=== PATIENT | female | born 1985 | race Hispanic/Latino ===

== ENCOUNTER → 2020-03-07 11:40 | Outpatient (CLI) | payer OTHER, MEDICAID, SELFPAY ==
--- NOTE | 2020-03-07 | DI.RAD.S_ITS ---
PROCEDURE: XR ANKLE RT MIN 3V INDICATIONS: Right ankle pain TECHNIQUE: 3 views of the ankle were acquired. COMPARISON: None. FINDINGS: Bones: No fractures or dislocations. Ankle mortise is normally aligned. No suspicious bony lesions. Prominent talar beak. Soft tissues: No tibiotalar joint effusion. Achilles tendon appears normal. 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 If indicated, MRI could be performed for further evaluation. Dictated by: [facility] Interpreted: Patricia Khan MD on 03/07/2020 at 13:37 Approved by: Patricia Khan MD, PhD on 03/07/2020 at 16:46
== END ==
PROVIDERS: PCP Family Medicine; Referring Provider Family Medicine; Visit Provider Family Medicine
DX: M25.571 Pain in right ankle and joints of right foot (principal)
CPT/HCPCS: 73610

== ENCOUNTER 2020-05-08 13:30 | Outpatient (RCR) | payer OTHER, MEDICAID, SELFPAY ==
--- NOTE | 2020-03-27 16:42 | PT.OIE ---
Current Diagnoses Difficulty in walking, not elsewhere classified (03/27/20) Sprain of unspecified ligament of right ankle, initial encounter (03/27/20) Past Medical History (Last Updated 10/17/19 @ 13:05 by Pat Reyes, RN) delivery delivered (Acute) Past Surgical History (Last Updated 10/17/19 @ 13:04 by Pat Reyes, RN) No pertinent past surgical history (Acute) Visit Care Team Role Provider Type Corrie Bynum MD Attending Provider Physician Family Provider Primary Care Provider Referring Provider Specialty: Family Practice Address: [address] [place] [address] [place], [place], [facility] Email: [email or web address] Physical Therapy Initial Evaluation PT-OP-A Visit Information Start: 03/27/20 13:01 Freq: Status: Active Protocol: Document 03/27/20 13:05 AW (Rec: 03/27/20 13:12 AW [id number]) Out-Patient Physical Therapy Visit Information Visit Information Visit Type Initial Evaluation Visit Start Time 13:30 Visit Stop Time 14:15 Total Visit Minutes 45 Visit Number 1 Evaluation Information Evaluation Date 03/27/20 PT-OP-B Current Condition Start: 03/27/20 13:01 Freq: Status: Active Protocol: Document 03/27/20 13:05 AW (Rec: 03/27/20 13:12 AW [id number]) Current Condition History of Current Condition Onset Date 02/26/20 Current Complaints right ankle pain History of Current Condition On February 25, Pebbles was playing kickball with her children. She was on an uneven surface as her dogs had been digging holes in the yard. She heard three cracks but felt little pain. She started to notice swelling that night and had bruising over the anterior and lateral aspects of her ankle over the next few days. She iced one time and tried compression but could not get a good fit with a brace. Her doctor ordered an x-ray which demonstrated no fracture and normal alignment. Her pain was 4/10 at worst but she arrives today with no pain. She reports limping and guarding over the course of several days. Pt experienced a similar injury at age 13 which she states was at least as bad. She runs 3 miles approximately every other day which she reports is very beneficial for her mental health. She reports no recent change in her mileage or terrain. She did buy new running shoes 3 months ago due to nagging diffuse bilateral ankle pain, but she does not believe the change in footwear contributed to her injury. She typically wears sandals during the summer. Following the advice of her primary care provider, pt has not been running since her injury. 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 If indicated, MRI could be performed for further evaluation. Report finds No fractures or dislocations. Ankle mortise is normally aligned. No suspicious bony lesions. Soft tissues: No tibiotalar joint effusion. Achilles tendon appears normal. Treatment Goals Patient/Caregiver Goals Pt would like to return to running and to be more comfortable on uneven terrain. Prior Functional Status Baseline Function- ADL's Independent Baseline Function- Mobility Independent Baseline Function- Recreation/Hobbies Pt runs 3 miles every other day. Current Functional Impairments (Reported) Functional Limitations- Mobility/Gait Decreased confidence on uneven terrain Functional Limitations- Recreation/ Unable to participate in Hobbies running Personal Factors Other Personal Factors That May Effect Previous similar injury at age Therapy/Recovery 13 PT-OP-C Subjective Start: 03/27/20 13:01 Freq: Status: Active Protocol: Document 03/27/20 13:05 AW (Rec: 03/27/20 15:13 AW [id number]) Patient Questionnaires Foot & Ankle Ability Measure- ADL and Sports FAAM-ADL Score 81 FAAM-ADL Impairment 1 to 19% Impaired (Score 67-83 ) FAAM-Sport Score 22 FAAM-Sport Impairment 20 to 39% Impaired (Score 19- 24) Lower Extremity Functional Scale LEFS Score 75 LEFS Impairment 1 to 19% Impaired (Score 63-79 ) OP-PT Pain Assessment Pain Assessment Grid Paper Pain Assessment Grid Completed Yes Comments Pain Comments Pt reports no pain today. Her worst pain was 4/10 with swelling and bruising of anterior and lateral ankle. PT-OP-D Balance Start: 03/27/20 13:01 Freq: Status: Active Protocol: Document 03/27/20 13:05 AW (Rec: 03/27/20 15:13 AW [id number]) OP-PT Balance Assessment Standing Balance Static Standing Balance Ability Normal Dynamic Standing Balance Ability Good Standing Balance Comments Single leg stance 25 seconds left side and 20 seconds right side with increased shaking/ instability. Romero Fall Scale Copyright Permission PT-OP-F Manual Assessment Start: 03/27/20 13:01 Freq: Status: Active Protocol: Document 03/27/20 13:05 AW (Rec: 03/27/20 15:13 AW [id number]) Manual Assessments Soft Tissue Assessment Soft Tissue Mobility Assessment Tenderness of lateral ankle Joint Mobility Assessment Joint Mobility Assessment Decreased posterior talar glide. Distal tib fib posterior and anterior glides normal. PT-OP-G Mobility & Gait Start: 03/27/20 13:01 Freq: Status: Active Protocol: Document 03/27/20 13:05 AW (Rec: 03/27/20 15:13 AW [id number]) OP Mobility Evaluation Functional Movements Squats Pt able to perform bilateral squat with good depth and heels flat. OP Gait Assessment Gait Gait Assistance Required: Independent Distance (Feet) 200 Assistive Devices Assistive Device None Gait Deviations General Gait Pattern Antalgic,Decreased Stride Length,Step-to Gait Comments Gait Comments Gait notable for decreased R LE stance time and decreased L LE step length. PT-OP-J Posture/Palpation/Skin Start: 03/27/20 13:01 Freq: Status: Active Protocol: Document 03/27/20 13:05 AW (Rec: 03/27/20 15:13 AW [id number]) Posture Evaluation Position Standing Weight Distribution Balanced Ankle/Foot Posture (L) Calcaneal Eversion,(R) Calcaneal Eversion Foot Arch (L) Low Arch,(R) Low Arch Toe Posture (L) Flexed Toes,(R) Flexed Toes Comments Posture Comments Slight calcaneal valgus in weightbearing with left more pronounced than right. Skin Assessment Edema Assessment Bilateral Ankle Comments Figure 8 measurements: L 49 cm ; R 51 cm PT-OP-K Range of Motion Start: 03/27/20 13:01 Freq: Status: Active Protocol: Document 03/27/20 13:05 AW (Rec: 03/27/20 15:13 AW [id number]) Knee Goniometric Range of Motion Knee ROM Limitations Comments B knee ROM WNL Ankle and Foot Goniometric Range of Motion Ankle and Foot ROM Limitations ROM Limitations Swelling Comments Left ankle DF with knee flexed 18 degrees Left ankle DF with knee extended 10 degrees Right ankle DF with knee flexed 16 degrees Right ankle DF with knee extended 10 degrees Eversion and eversion WNL bilaterally Toe Range of Motion Toes ROM Limitations Comments WNL bilaterally all digits PT-OP-L Special Tests Start: 03/27/20 13:01 Freq: Status: Active Protocol: Document 03/27/20 13:05 AW (Rec: 03/27/20 15:13 AW [id number]) Special Tests Foot/Ankle Special Tests Anterior Draw Test Results (+) R Comments boggy end feel right side compared with left PT-OP-M Strength Start: 03/27/20 13:01 Freq: Status: Active Protocol: Document 03/27/20 13:05 AW (Rec: 03/27/20 15:13 AW [id number]) Hip Strength Hip Manual Muscle Testing Right Comments B hip strength grossly 4+/5 Knee Strength Knee Manual Muscle Testing Right Comments B knee strength grossly 5/5 Ankle/Foot Strength Ankle and Foot Manual Muscle Testing Right Dorsiflexion (L4) 4+ Good+ Plantarflexion (S1) 4- Good- Inversion 4+ Good+ Eversion (S1) 4+ Good+ Comments PF tested in standing. Pt able to complete 20 reps single leg heel raise on left side but only 6 reps on right side. Left ankle grossly 5/5 Toe Strength Toe Manual Muscle Testing Right Great Toe Comments B digits 1-5 4+/5 to 5/5 PT-OP-Q Treatments Start: 03/27/20 13:01 Freq: Status: Active Protocol: Document 03/27/20 13:05 AW (Rec: 03/27/20 15:13 AW [id number]) Therapeutic Exercises Supine Exercises resisted DF/PF/inversion/eversion Supine Exercise Name resisted DF/PF/inversion/ eversion Side right Resistance level 1 Reps/Minutes 15 reps each plane Comments HEP AROM R ankle Supine Exercise Name AROM - alphabet Side right Reps/Minutes 2 min Comments no report of pain; pt cued for slow movement PT-OP-R Modalities Start: 03/27/20 13:01 Freq: Status: Active Protocol: Document 03/27/20 13:05 AW (Rec: 03/27/20 15:13 AW [id number]) Hot Pack/Cold Pack Treatment Ice Massage Location right lateral ankle Patient Position Sitting Treatment Duration (minutes) 6 Patient Tolerance Good Comments Contraindications cleared. Pt reports good numbing effect. Educated pt on self- administration PT-OP-T Assessment and Plan Start: 03/27/20 13:01 Freq: Status: Active Protocol: Document 03/27/20 13:05 AW (Rec: 03/27/20 16:36 AW [id number]) Physical Therapy Assessment Rehab Potential Rehabilitation Potential Excellent Evaluation Complexity Number of Personal Factors/Comorbidities 1-2 Number of Body Systems Impaired 1-2 Clinical Presentation at Evaluation Stable Impairments Impairments Balance,Edema,Gait,Pain, Posture,ROM,Strength Goals Six Impairment swelling right ankle Short Term Goal (STG) Figure 8 measurement of right ankle will be reduced to 49 cm . STG Duration 04/24/20 Five Impairment lack of confidence on uneven terrain Skilled Nursing Goal (LTG) Pt will walk 30 minutes on uneven terrain without increase in pain or swelling LTG Duration 05/22/20 Four Impairment pt scores 22/28 on FAAM sport subscale Skilled Nursing Goal (LTG) Pt will score 26/28 or greater on FAAM sport subscale to demonstrate improved involvement in pt's preferred activities. Three Impairment decreased right ankle strength Machinery Dismantler Goal (LTG) Pt will demonstrate right ankle strength same as left, including single leg heel raises. LTG Duration 05/22/20 Two Impairment Pt has no appropriate HEP Short Term Goal (STG) Pt will be independent with HEP for support of therapy services provided in clinic STG Duration 04/24/20 Machinery Dismantler Goal (LTG) Pt will be independent with maintenance H&P for improved right ankle stability LTG Duration 05/22/20 One Impairment Pt unable to run for exercise. Short Term Goal (STG) Pt will run 1/2 mile without increase in pain or swelling STG Duration 04/24/20 Machinery Dismantler Goal (LTG) Pt will run 2 miles without increase in pain or swelling LTG Duration 05/22/20 Assessment Summary Assessment Pebbles is a 34 year old woman seen for PT evaluation one month after right ankle sprain sustained while playing kickball on uneven terrain. She presents with swelling, decreased strength, and decreased stability of her right ankle which are affecting her ability to participate in recreational activities such as running and her confidence navigating uneven terrain. Pt will benefit from outpatient PT to address these impairments for successful return to sport and to decrease the risk of re- injury. Physical Therapy Plan Frequency and Duration Frequency of Treatment 1-2x/week Duration of Treatment 12 weeks Plan of Care Start Date 03/27/20 Plan of Care End Date 06/19/20 Therapeutic Interventions Therapeutic Interventions Balance Training,Gait Training ,Home Exercise Program,Joint Mobilizations,Manual Therapy, Neuromuscular Re-education, Patient/Caregiver Education, Soft Tissue Mobilization, Taping,Therapeutic Activities, Therapeutic Exercises Modalities Cold Pack/Ice Massage Other Therapeutic Interventions cryo cuff Next Visit Focus/Plan Next Note Type Treatment Note Next Visit Plan review HEP (ankle alphabet, resisted ankle DF/PF/inversion /eversion, self ice massage); ROM and strengthening right ankle; cryo cuff
--- NOTE | 2020-03-27 16:42 | PT.OPPOC ---
Physical, Occupational & Speech Therapy At [facility] Current Diagnoses Difficulty in walking, not elsewhere classified (03/27/20) Sprain of unspecified ligament of right ankle, initial encounter (03/27/20) Visit Care Team Role Provider Type Corrie Bynum MD Attending Provider Physician Family Provider Primary Care Provider Referring Provider Specialty: Family Practice Address: [address] [place] [address], [facility] [place], [facility] Email: Plan Of Care PT-OP-T Assessment and Plan Start: 03/27/20 13:01 Freq: Status: Active Protocol: Document 03/27/20 13:05 AW (Rec: 03/27/20 16:36 AW [id number]) Physical Therapy Assessment Rehab Potential Rehabilitation Potential Excellent Evaluation Complexity Number of Personal Factors/Comorbidities 1-2 Number of Body Systems Impaired 1-2 Clinical Presentation at Evaluation Stable Impairments Impairments Balance,Edema,Gait,Pain, Posture,ROM,Strength Goals Six Impairment swelling right ankle Short Term Goal (STG) Figure 8 measurement of right ankle will be reduced to 49 cm . STG Duration 04/24/20 Five Impairment lack of confidence on uneven terrain Mcc Goal (LTG) Pt will walk 30 minutes on uneven terrain without increase in pain or swelling LTG Duration 05/22/20 Four Impairment pt scores 22/28 on FAAM sport subscale Attending Anesthesiologist Goal (LTG) Pt will score 26/28 or greater on FAAM sport subscale to demonstrate improved involvement in pt's preferred activities. Three Impairment decreased right ankle strength Attending Anesthesiologist Goal (LTG) Pt will demonstrate right ankle strength same as left, including single leg heel raises. LTG Duration 05/22/20 Two Impairment Pt has no appropriate HEP Short Term Goal (STG) Pt will be independent with HEP for support of therapy services provided in clinic STG Duration 04/24/20 Attending Anesthesiologist Goal (LTG) Pt will be independent with maintenance H&P for improved right ankle stability LTG Duration 05/22/20 One Impairment Pt unable to run for exercise. Short Term Goal (STG) Pt will run 1/2 mile without increase in pain or swelling STG Duration 04/24/20 Attending Anesthesiologist Goal (LTG) Pt will run 2 miles without increase in pain or swelling LTG Duration 05/22/20 Assessment Summary Assessment Pebbles is a 34 year old woman seen for PT evaluation one month after right ankle sprain sustained while playing kickball on uneven terrain. She presents with swelling, decreased strength, and decreased stability of her right ankle which are affecting her ability to participate in recreational activities such as running and her confidence navigating uneven terrain. Pt will benefit from outpatient PT to address these impairments for successful return to sport and to decrease the risk of re- injury. Physical Therapy Plan Frequency and Duration Frequency of Treatment 1-2x/week Duration of Treatment 12 weeks Plan of Care Start Date 03/27/20 Plan of Care End Date 06/19/20 Therapeutic Interventions Therapeutic Interventions Balance Training,Gait Training ,Home Exercise Program,Joint Mobilizations,Manual Therapy, Neuromuscular Re-education, Patient/Caregiver Education, Soft Tissue Mobilization, Taping,Therapeutic Activities, Therapeutic Exercises Modalities Cold Pack/Ice Massage Other Therapeutic Interventions cryo cuff Next Visit Focus/Plan Next Note Type Treatment Note Next Visit Plan review HEP (ankle alphabet, resisted ankle DF/PF/inversion /eversion, self ice massage); ROM and strengthening right ankle; cryo cuff Plan of Care Dates Plan of Care Start Date 03/27/20 Plan of Care End Date 06/19/20 Electronically Signed by: Maggi De León, PT 03/27/20 [id number] Please Sign and Return: I have reviewed this Plan of Care and certify that the skilled therapy services above are required to meet the patient?s needs. Physician Signature Date Printed Name and Credentials Clinical Instructor Signature Printed Name and Credentials
--- NOTE | 2020-04-03 16:27 | PT.OTN ---
Current Diagnoses Difficulty in walking, not elsewhere classified (04/03/20) Sprain of unspecified ligament of right ankle, initial encounter (04/03/20) Physical Therapy Treatment Note PT-OP-A Visit Information Start: 03/27/20 13:01 Freq: Status: Active Protocol: Document 04/03/20 16:07 AW (Rec: 04/03/20 16:24 AW [email or web address]) Out-Patient Physical Therapy Visit Information Visit Information Visit Type Treatment Note Visit Start Time 15:15 Visit Stop Time 16:10 Total Visit Minutes 55 Visit Number 11/13 Evaluation Information Evaluation Date 03/27/20 PT-OP-B Current Condition Start: 03/27/20 13:01 Freq: Status: Active Protocol: Document 03/27/20 13:05 AW (Rec: 03/27/20 13:12 AW [id number]) Current Condition History of Current Condition Onset Date 02/26/20 Current Complaints right ankle pain History of Current Condition On February 25, Pebbles was playing kickball with her children. She was on an uneven surface as her dogs had been digging holes in the yard. She heard three cracks but felt little pain. She started to notice swelling that night and had bruising over the anterior and lateral aspects of her ankle over the next few days. She iced one time and tried compression but could not get a good fit with a brace. Her doctor ordered an x-ray which demonstrated no fracture and normal alignment. Her pain was 4/10 at worst but she arrives today with no pain. She reports limping and guarding over the course of several days. Pt experienced a similar injury at age 13 which she states was at least as bad. She runs 3 miles approximately every other day which she reports is very beneficial for her mental health. She reports no recent change in her mileage or terrain. She did buy new running shoes 3 months ago due to nagging diffuse bilateral ankle pain, but she does not believe the change in footwear contributed to her injury. She typically wears sandals during the summer. Following the advice of her primary care provider, pt has not been running since her injury. 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 If indicated, MRI could be performed for further evaluation. Report finds No fractures or dislocations. Ankle mortise is normally aligned. No suspicious bony lesions. Soft tissues: No tibiotalar joint effusion. Achilles tendon appears normal. Treatment Goals Patient/Caregiver Goals Pt would like to return to running and to be more comfortable on uneven terrain. Prior Functional Status Baseline Function- ADL's Independent Baseline Function- Mobility Independent Baseline Function- Recreation/Hobbies Pt runs 3 miles every other day. Current Functional Impairments (Reported) Functional Limitations- Mobility/Gait Decreased confidence on uneven terrain Functional Limitations- Recreation/ Unable to participate in Hobbies running Personal Factors Other Personal Factors That May Effect Previous similar injury at age Therapy/Recovery 13 PT-OP-C Subjective Start: 03/27/20 13:01 Freq: Status: Active Protocol: Document 04/03/20 16:07 AW (Rec: 04/03/20 16:24 AW [email or web address]) OP-PT Subjective Patient Comments Patient Comments Pt has been doing her HEP and also initiated a family walking program. She is walking a mile every night with her family on paved surfaces and varying inclines. She has also been icing which she finds effective. PT-OP-D Balance Start: 03/27/20 13:01 Freq: Status: Active Protocol: Document 03/27/20 13:05 AW (Rec: 03/27/20 15:13 AW [id number]) OP-PT Balance Assessment Standing Balance Static Standing Balance Ability Normal Dynamic Standing Balance Ability Good Standing Balance Comments Single leg stance 25 seconds left side and 20 seconds right side with increased shaking/ instability. Romero Fall Scale Copyright Permission PT-OP-F Manual Assessment Start: 03/27/20 13:01 Freq: Status: Active Protocol: Document 03/27/20 13:05 AW (Rec: 03/27/20 15:13 AW [id number]) Manual Assessments Soft Tissue Assessment Soft Tissue Mobility Assessment Tenderness of lateral ankle Joint Mobility Assessment Joint Mobility Assessment Decreased posterior talar glide. Distal tib fib posterior and anterior glides normal. PT-OP-G Mobility & Gait Start: 03/27/20 13:01 Freq: Status: Active Protocol: Document 03/27/20 13:05 AW (Rec: 03/27/20 15:13 AW [id number]) OP Mobility Evaluation Functional Movements Squats Pt able to perform bilateral squat with good depth and heels flat. OP Gait Assessment Gait Gait Assistance Required: Independent Distance (Feet) 200 Assistive Devices Assistive Device None Gait Deviations General Gait Pattern Antalgic,Decreased Stride Length,Step-to Gait Comments Gait Comments Gait notable for decreased R LE stance time and decreased L LE step length. PT-OP-J Posture/Palpation/Skin Start: 03/27/20 13:01 Freq: Status: Active Protocol: Document 03/27/20 13:05 AW (Rec: 03/27/20 15:13 AW [id number]) Posture Evaluation Position Standing Weight Distribution Balanced Ankle/Foot Posture (L) Calcaneal Eversion,(R) Calcaneal Eversion Foot Arch (L) Low Arch,(R) Low Arch Toe Posture (L) Flexed Toes,(R) Flexed Toes Comments Posture Comments Slight calcaneal valgus in weightbearing with left more pronounced than right. Skin Assessment Edema Assessment Bilateral Ankle Comments Figure 8 measurements: L 49 cm ; R 51 cm PT-OP-K Range of Motion Start: 03/27/20 13:01 Freq: Status: Active Protocol: Document 03/27/20 13:05 AW (Rec: 03/27/20 15:13 AW [id number]) Knee Goniometric Range of Motion Knee ROM Limitations Comments B knee ROM WNL Ankle and Foot Goniometric Range of Motion Ankle and Foot ROM Limitations ROM Limitations Swelling Comments Left ankle DF with knee flexed 18 degrees Left ankle DF with knee extended 10 degrees Right ankle DF with knee flexed 16 degrees Right ankle DF with knee extended 10 degrees Eversion and eversion WNL bilaterally Toe Range of Motion Toes ROM Limitations Comments WNL bilaterally all digits PT-OP-L Special Tests Start: 03/27/20 13:01 Freq: Status: Active Protocol: Document 03/27/20 13:05 AW (Rec: 03/27/20 15:13 AW [id number]) Special Tests Foot/Ankle Special Tests Anterior Draw Test Results (+) R Comments boggy end feel right side compared with left PT-OP-M Strength Start: 03/27/20 13:01 Freq: Status: Active Protocol: Document 03/27/20 13:05 AW (Rec: 03/27/20 15:13 AW [id number]) Hip Strength Hip Manual Muscle Testing Right Comments B hip strength grossly 4+/5 Knee Strength Knee Manual Muscle Testing Right Comments B knee strength grossly 5/5 Ankle/Foot Strength Ankle and Foot Manual Muscle Testing Right Dorsiflexion (L4) 4+ Good+ Plantarflexion (S1) 4- Good- Inversion 4+ Good+ Eversion (S1) 4+ Good+ Comments PF tested in standing. Pt able to complete 20 reps single leg heel raise on left side but only 6 reps on right side. Left ankle grossly 5/5 Toe Strength Toe Manual Muscle Testing Right Great Toe Comments B digits 1-5 4+/5 to 5/5 PT-OP-Q Treatments Start: 03/27/20 13:01 Freq: Status: Active Protocol: Document 04/03/20 16:07 AW (Rec: 04/03/20 16:24 AW [email or web address]) Cardio Equipment Bicycle (Upright) Duration (Minutes) 5 Resistance 5 Seat Position 2 Therapeutic Exercises Supine Exercises isometric eversion/eversion Supine Exercise Name isometric eversion/eversion Side right Equipment Used green ball Reps/Minutes 15 reps each direction resisted DF/PF/inversion/eversion Supine Exercise Name resisted DF/PF/inversion/ eversion Side right Resistance level 2 Equipment Used TB Reps/Minutes 15 reps each plane Comments HEP Sitting Exercises PNF D2 DF Sitting Exercise Name PNF D2 DF Side right Resistance manual Reps/Minutes 2 minutes Comments long-sitting PNF D1 DF Sitting Exercise Name PNF D1 DF Side right Resistance manual Reps/Minutes 2 minutes Comments long-sitting Standing Exercises heel raises Standing Exercise Name heel raises Side bilateral Equipment Used 6 step Reps/Minutes 15 reps x 2 weightbearing eversion Standing Exercise Name weightbearing eversion Side right Reps/Minutes 10 reps x 2 Comments cues to avoid hip rotation step up stretch Standing Exercise Name step up stretch Side right Equipment Used 6 stairs Reps/Minutes 1 minute Comments right foot on 2nd stair with posterior talar glide provided manually gastroc/soleus stretch Standing Exercise Name gastroc/soleus stretch Side bilateral Equipment Used SHARLENE Reps/Minutes 2 minutes Comments cues for hip extension PT-OP-R Modalities Start: 03/27/20 13:01 Freq: Status: Active Protocol: Document 04/03/20 16:07 AW (Rec: 04/03/20 16:25 AW [email or web address]) Hot Pack/Cold Pack Treatment cryo cuff Location right ankle Patient Position Hooklying Treatment Duration (minutes) 10 Patient Tolerance Good PT-OP-T Assessment and Plan Start: 03/27/20 13:01 Freq: Status: Active Protocol: Document 04/03/20 16:07 AW (Rec: 04/03/20 16:24 AW [email or web address]) Physical Therapy Assessment Goals Six Impairment swelling right ankle Short Term Goal (STG) Figure 8 measurement of right ankle will be reduced to 49 cm . STG Duration 04/24/20 Five Impairment lack of confidence on uneven terrain Half-Way Goal (LTG) Pt will walk 30 minutes on uneven terrain without increase in pain or swelling LTG Duration 05/22/20 Four Impairment pt scores 22/28 on FAAM sport subscale [place] Goal (LTG) Pt will score 26/28 or greater on FAAM sport subscale to demonstrate improved involvement in pt's preferred activities. Three Impairment decreased right ankle strength [place] Goal (LTG) Pt will demonstrate right ankle strength same as left, including single leg heel raises. LTG Duration 05/22/20 Two Impairment Pt has no appropriate HEP Short Term Goal (STG) Pt will be independent with HEP for support of therapy services provided in clinic STG Duration 04/24/20 Half-Way Goal (LTG) Pt will be independent with maintenance H&P for improved right ankle stability LTG Duration 05/22/20 One Impairment Pt unable to run for exercise. Short Term Goal (STG) Pt will run 1/2 mile without increase in pain or swelling STG Duration 04/24/20 [place] Goal (LTG) Pt will run 2 miles without increase in pain or swelling LTG Duration 05/22/20 Assessment Summary Assessment Pebbles tolerated increase in resistance this date. She expressed concerns about the talar beak noted on her x- rays. 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 Also educated pt on footwear for running, encouraging her to look for shoes that provide improved forefoot support. Physical Therapy Plan Frequency and Duration Frequency of Treatment 1-2x/week Duration of Treatment 12 weeks Plan of Care Start Date 03/27/20 Plan of Care End Date 06/19/20 Therapeutic Interventions Therapeutic Interventions Balance Training,Gait Training ,Home Exercise Program,Joint Mobilizations,Manual Therapy, Neuromuscular Re-education, Patient/Caregiver Education, Soft Tissue Mobilization, Taping,Therapeutic Activities, Therapeutic Exercises Modalities Cold Pack/Ice Massage Other Therapeutic Interventions cryo cuff Next Visit Focus/Plan Next Note Type Treatment Note Next Visit Plan review HEP (ankle alphabet, resisted ankle DF/PF/inversion /eversion, D1/D2 ankle DF, heel raises, self ice massage) ; ROM and strengthening right ankle; cryo cuff
--- NOTE | 2020-04-08 13:06 | PT.OTN ---
Current Diagnoses Difficulty in walking, not elsewhere classified (04/08/20) Sprain of unspecified ligament of right ankle, initial encounter (04/08/20) Physical Therapy Treatment Note PT-OP-A Visit Information Start: 03/27/20 13:01 Freq: Status: Active Protocol: Document 04/08/20 12:16 SP (Rec: 04/08/20 13:17 SP [id number]) Out-Patient Physical Therapy Visit Information Visit Information Visit Type Treatment Note Visit Start Time 12:16 Visit Stop Time 13:06 Total Visit Minutes 50 Visit Number 12/11 Number of [employer]UROPATH[employer] DOCTOR Visits 1 PT-OP-B Current Condition Start: 03/27/20 13:01 Freq: Status: Active Protocol: Document 03/27/20 13:05 AW (Rec: 03/27/20 13:12 AW [id number]) Current Condition History of Current Condition Onset Date 02/26/20 Current Complaints right ankle pain History of Current Condition On February 25, Pebbles was playing kickball with her children. She was on an uneven surface as her dogs had been digging holes in the yard. She heard three cracks but felt little pain. She started to notice swelling that night and had bruising over the anterior and lateral aspects of her ankle over the next few days. She iced one time and tried compression but could not get a good fit with a brace. Her doctor ordered an x-ray which demonstrated no fracture and normal alignment. Her pain was 4/10 at worst but she arrives today with no pain. She reports limping and guarding over the course of several days. Pt experienced a similar injury at age 13 which she states was at least as bad. She runs 3 miles approximately every other day which she reports is very beneficial for her mental health. She reports no recent change in her mileage or terrain. She did buy new running shoes 3 months ago due to nagging diffuse bilateral ankle pain, but she does not believe the change in footwear contributed to her injury. She typically wears sandals during the summer. Following the advice of her primary care provider, pt has not been running since her injury. 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 If indicated, MRI could be performed for further evaluation. Report finds No fractures or dislocations. Ankle mortise is normally aligned. No suspicious bony lesions. Soft tissues: No tibiotalar joint effusion. Achilles tendon appears normal. Treatment Goals Patient/Caregiver Goals Pt would like to return to running and to be more comfortable on uneven terrain. Prior Functional Status Baseline Function- ADL's Independent Baseline Function- Mobility Independent Baseline Function- Recreation/Hobbies Pt runs 3 miles every other day. Current Functional Impairments (Reported) Functional Limitations- Mobility/Gait Decreased confidence on uneven terrain Functional Limitations- Recreation/ Unable to participate in Hobbies running Personal Factors Other Personal Factors That May Effect Previous similar injury at age Therapy/Recovery 13 PT-OP-C Subjective Start: 03/27/20 13:01 Freq: Status: Active Protocol: Document 04/08/20 12:16 SP (Rec: 04/08/20 13:17 SP [id number]) OP-PT Subjective Patient Comments Patient Comments Pt had good reponse to last tx with no increase pain, concerns but reported didn't do as many of her exercises since last visit as had prior due to camping over the weekend. Is able to walk even surfaces with inclines more now still about a mile stint. PT-OP-D Balance Start: 03/27/20 13:01 Freq: Status: Active Protocol: Document 03/27/20 13:05 AW (Rec: 03/27/20 15:13 AW [id number]) OP-PT Balance Assessment Standing Balance Static Standing Balance Ability Normal Dynamic Standing Balance Ability Good Standing Balance Comments Single leg stance 25 seconds left side and 20 seconds right side with increased shaking/ instability. Romero Fall Scale Copyright Permission PT-OP-F Manual Assessment Start: 03/27/20 13:01 Freq: Status: Active Protocol: Document 03/27/20 13:05 AW (Rec: 03/27/20 15:13 AW [id number]) Manual Assessments Soft Tissue Assessment Soft Tissue Mobility Assessment Tenderness of lateral ankle Joint Mobility Assessment Joint Mobility Assessment Decreased posterior talar glide. Distal tib fib posterior and anterior glides normal. PT-OP-G Mobility & Gait Start: 03/27/20 13:01 Freq: Status: Active Protocol: Document 03/27/20 13:05 AW (Rec: 03/27/20 15:13 AW [id number]) OP Mobility Evaluation Functional Movements Squats Pt able to perform bilateral squat with good depth and heels flat. OP Gait Assessment Gait Gait Assistance Required: Independent Distance (Feet) 200 Assistive Devices Assistive Device None Gait Deviations General Gait Pattern Antalgic,Decreased Stride Length,Step-to Gait Comments Gait Comments Gait notable for decreased R LE stance time and decreased L LE step length. PT-OP-J Posture/Palpation/Skin Start: 03/27/20 13:01 Freq: Status: Active Protocol: Document 03/27/20 13:05 AW (Rec: 03/27/20 15:13 AW [id number]) Posture Evaluation Position Standing Weight Distribution Balanced Ankle/Foot Posture (L) Calcaneal Eversion,(R) Calcaneal Eversion Foot Arch (L) Low Arch,(R) Low Arch Toe Posture (L) Flexed Toes,(R) Flexed Toes Comments Posture Comments Slight calcaneal valgus in weightbearing with left more pronounced than right. Skin Assessment Edema Assessment Bilateral Ankle Comments Figure 8 measurements: L 49 cm ; R 51 cm PT-OP-K Range of Motion Start: 03/27/20 13:01 Freq: Status: Active Protocol: Document 03/27/20 13:05 AW (Rec: 03/27/20 15:13 AW [id number]) Knee Goniometric Range of Motion Knee ROM Limitations Comments B knee ROM WNL Ankle and Foot Goniometric Range of Motion Ankle and Foot ROM Limitations ROM Limitations Swelling Comments Left ankle DF with knee flexed 18 degrees Left ankle DF with knee extended 10 degrees Right ankle DF with knee flexed 16 degrees Right ankle DF with knee extended 10 degrees Eversion and eversion WNL bilaterally Toe Range of Motion Toes ROM Limitations Comments WNL bilaterally all digits PT-OP-L Special Tests Start: 03/27/20 13:01 Freq: Status: Active Protocol: Document 03/27/20 13:05 AW (Rec: 03/27/20 15:13 AW [id number]) Special Tests Foot/Ankle Special Tests Anterior Draw Test Results (+) R Comments boggy end feel right side compared with left PT-OP-M Strength Start: 03/27/20 13:01 Freq: Status: Active Protocol: Document 03/27/20 13:05 AW (Rec: 03/27/20 15:13 AW [id number]) Hip Strength Hip Manual Muscle Testing Right Comments B hip strength grossly 4+/5 Knee Strength Knee Manual Muscle Testing Right Comments B knee strength grossly 5/5 Ankle/Foot Strength Ankle and Foot Manual Muscle Testing Right Dorsiflexion (L4) 4+ Good+ Plantarflexion (S1) 4- Good- Inversion 4+ Good+ Eversion (S1) 4+ Good+ Comments PF tested in standing. Pt able to complete 20 reps single leg heel raise on left side but only 6 reps on right side. Left ankle grossly 5/5 Toe Strength Toe Manual Muscle Testing Right Great Toe Comments B digits 1-5 4+/5 to 5/5 PT-OP-Q Treatments Start: 03/27/20 13:01 Freq: Status: Active Protocol: Document 04/08/20 12:16 SP (Rec: 04/08/20 13:17 SP [id number]) Cardio Equipment Bicycle (Upright) Duration (Minutes) 8 Resistance 6 Seat Position 4 Therapeutic Exercises Supine Exercises resisted DF/PF/inversion/eversion Supine Exercise Name resisted DF/PF/inversion/ eversion Side right Resistance level 2 Equipment Used TB Reps/Minutes 2 min each plank Comments HEP, SEATED today Sitting Exercises PNF D2 DF Sitting Exercise Name PNF D2 DF Side right Resistance manual Reps/Minutes 2 minutes Comments long-sitting PNF D1 DF Sitting Exercise Name PNF D1 DF Side right Resistance manual Reps/Minutes 2 minutes Comments long-sitting Standing Exercises single heel raise Side right Equipment Used floor Reps/Minutes x8 Comments cued med/lat stability, slow descent squat taps Standing Exercise Name arms across chest Equipment Used 18 table height Reps/Minutes x10 Comments cued knee with mid foot alignment, hip hinge, slow eccentric control heel/toe walking Reps/Minutes 10 ft x2 each length heel raises Standing Exercise Name heel raises Side bilateral Equipment Used 6 step, floor, blue cushion Reps/Minutes 10 reps each surface weightbearing eversion Standing Exercise Name weightbearing eversion Side right Reps/Minutes 10 reps x 2 Comments cues to avoid hip rotation step up stretch Standing Exercise Name Ankle mobility (step up DF stretch) Side right Equipment Used 6 stairs Reps/Minutes 1 minute Comments right foot on 2nd stair with posterior talar glide provided manually gastroc/soleus stretch Standing Exercise Name gastroc/soleus stretch Side bilateral Equipment Used SHARLENE, and step Reps/Minutes 2 minutes Comments cues for hip extension PT-OP-R Modalities Start: 03/27/20 13:01 Freq: Status: Active Protocol: Document 04/03/20 16:07 AW (Rec: 04/03/20 16:25 AW [email or web address]) Hot Pack/Cold Pack Treatment cryo cuff Location right ankle Patient Position Hooklying Treatment Duration (minutes) 10 Patient Tolerance Good PT-OP-T Assessment and Plan Start: 03/27/20 13:01 Freq: Status: Active Protocol: Document 04/08/20 12:16 SP (Rec: 04/08/20 13:17 SP [id number]) Physical Therapy Assessment Goals Six Impairment swelling right ankle Short Term Goal (STG) Figure 8 measurement of right ankle will be reduced to 49 cm . STG Duration 04/24/20 Five Impairment lack of confidence on uneven terrain [place] Goal (LTG) Pt will walk 30 minutes on uneven terrain without increase in pain or swelling LTG Duration 05/22/20 Four Impairment pt scores 22/28 on FAAM sport subscale [employer] Goal (LTG) Pt will score 26/28 or greater on FAAM sport subscale to demonstrate improved involvement in pt's preferred activities. Three Impairment decreased right ankle strength [employer] Goal (LTG) Pt will demonstrate right ankle strength same as left, including single leg heel raises. LTG Duration 05/22/20 Two Impairment Pt has no appropriate HEP Short Term Goal (STG) Pt will be independent with HEP for support of therapy services provided in clinic STG Duration 04/24/20 [employer] Goal (LTG) Pt will be independent with maintenance H&P for improved right ankle stability LTG Duration 05/22/20 One Impairment Pt unable to run for exercise. Short Term Goal (STG) Pt will run 1/2 mile without increase in pain or swelling STG Duration 04/24/20 [place] Goal (LTG) Pt will run 2 miles without increase in pain or swelling LTG Duration 05/22/20 Assessment Summary Assessment Pebbles good recall, cued for set up IV/EV. Instruduced standing stabilization exercise: SLS, toe/heel walk, squat tap with cuing for proper knee & ankle alignment. Good feedback challenging but no pain during tx. Encourage to continue perform HEP at home between tx to progress strengthening toward goal uneven activities outside with verbal confirmation. Physical Therapy Plan Frequency and Duration Frequency of Treatment 1-2x/week Duration of Treatment 12 weeks Plan of Care Start Date 03/27/20 Plan of Care End Date 06/19/20 Therapeutic Interventions Therapeutic Interventions Balance Training,Gait Training ,Home Exercise Program,Joint Mobilizations,Manual Therapy, Neuromuscular Re-education, Patient/Caregiver Education, Soft Tissue Mobilization, Taping,Therapeutic Activities, Therapeutic Exercises Modalities Cold Pack/Ice Massage Other Therapeutic Interventions cryo cuff Next Visit Focus/Plan Next Note Type Treatment Note Next Visit Plan review HEP (squat taps, SLS uneven foam cushion, resisted ankle DF/PF/inversion/eversion , D1/D2 ankle DF, heel raises, toe/ heel walking, self ice massage); ROM and strengthening right ankle; cryo cuff as needed.
--- NOTE | 2020-04-11 13:47 | PT.OTN ---
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 Visit Start Time 13:05 Visit Stop Time 13:47 Total Visit Minutes 42 Visit Number 01/11 Number of DIRECTOR EMERGENCY Visits 2 PT-OP-B Current Condition Start: 03/27/20 13:01 Freq: Status: Active Protocol: Document 03/27/20 13:05 AW (Rec: 03/27/20 13:12 AW [id number]) Current Condition History of Current Condition Onset Date 02/26/20 Current Complaints right ankle pain History of Current Condition On February 25, Pebbles was playing kickball with her children. She was on an uneven surface as her dogs had been digging holes in the yard. She heard three cracks but felt little pain. She started to notice swelling that night and had bruising over the anterior and lateral aspects of her ankle over the next few days. She iced one time and tried compression but could not get a good fit with a brace. Her doctor ordered an x-ray which demonstrated no fracture and normal alignment. Her pain was 4/10 at worst but she arrives today with no pain. She reports limping and guarding over the course of several days. Pt experienced a similar injury at age 13 which she states was at least as bad. She runs 3 miles approximately every other day which she reports is very beneficial for her mental health. She reports no recent change in her mileage or terrain. She did buy new running shoes 3 months ago due to nagging diffuse bilateral ankle pain, but she does not believe the change in footwear contributed to her injury. She typically wears sandals during the summer. Following the advice of her primary care provider, pt has not been running since her injury. 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 If indicated, MRI could be performed for further evaluation. Report finds No fractures or dislocations. Ankle mortise is normally aligned. No suspicious bony lesions. Soft tissues: No tibiotalar joint effusion. Achilles tendon appears normal. Treatment Goals Patient/Caregiver Goals Pt would like to return to running and to be more comfortable on uneven terrain. Prior Functional Status Baseline Function- ADL's Independent Baseline Function- Mobility Independent Baseline Function- Recreation/Hobbies Pt runs 3 miles every other day. Current Functional Impairments (Reported) Functional Limitations- Mobility/Gait Decreased confidence on uneven terrain Functional Limitations- Recreation/ Unable to participate in Hobbies running Personal Factors Other Personal Factors That May Effect Previous similar injury at age Therapy/Recovery 13 PT-OP-C Subjective Start: 03/27/20 13:01 Freq: Status: Active Protocol: Document 04/11/20 15:42 TP (Rec: 04/11/20 16:17 TP [email or web address]) OP-PT Subjective Patient Comments Patient Comments Pt feels she is improving with good response to last tx. Ran downhill yesterday for an approximate distance of 0. 5miles on even terrain. Compliant with HEP. Requests review of 4-way ankle strenghtening with band. PT-OP-D Balance Start: 03/27/20 13:01 Freq: Status: Active Protocol: Document 03/27/20 13:05 AW (Rec: 03/27/20 15:13 AW [id number]) OP-PT Balance Assessment Standing Balance Static Standing Balance Ability Normal Dynamic Standing Balance Ability Good Standing Balance Comments Single leg stance 25 seconds left side and 20 seconds right side with increased shaking/ instability. Romero Fall Scale Copyright Permission PT-OP-F Manual Assessment Start: 03/27/20 13:01 Freq: Status: Active Protocol: Document 03/27/20 13:05 AW (Rec: 03/27/20 15:13 AW [id number]) Manual Assessments Soft Tissue Assessment Soft Tissue Mobility Assessment Tenderness of lateral ankle Joint Mobility Assessment Joint Mobility Assessment Decreased posterior talar glide. Distal tib fib posterior and anterior glides normal. PT-OP-G Mobility & Gait Start: 03/27/20 13:01 Freq: Status: Active Protocol: Document 03/27/20 13:05 AW (Rec: 03/27/20 15:13 AW [id number]) OP Mobility Evaluation Functional Movements Squats Pt able to perform bilateral squat with good depth and heels flat. OP Gait Assessment Gait Gait Assistance Required: Independent Distance (Feet) 200 Assistive Devices Assistive Device None Gait Deviations General Gait Pattern Antalgic,Decreased Stride Length,Step-to Gait Comments Gait Comments Gait notable for decreased R LE stance time and decreased L LE step length. PT-OP-J Posture/Palpation/Skin Start: 03/27/20 13:01 Freq: Status: Active Protocol: Document 03/27/20 13:05 AW (Rec: 03/27/20 15:13 AW [id number]) Posture Evaluation Position Standing Weight Distribution Balanced Ankle/Foot Posture (L) Calcaneal Eversion,(R) Calcaneal Eversion Foot Arch (L) Low Arch,(R) Low Arch Toe Posture (L) Flexed Toes,(R) Flexed Toes Comments Posture Comments Slight calcaneal valgus in weightbearing with left more pronounced than right. Skin Assessment Edema Assessment Bilateral Ankle Comments Figure 8 measurements: L 49 cm ; R 51 cm PT-OP-K Range of Motion Start: 03/27/20 13:01 Freq: Status: Active Protocol: Document 03/27/20 13:05 AW (Rec: 03/27/20 15:13 AW [id number]) Knee Goniometric Range of Motion Knee ROM Limitations Comments B knee ROM WNL Ankle and Foot Goniometric Range of Motion Ankle and Foot ROM Limitations ROM Limitations Swelling Comments Left ankle DF with knee flexed 18 degrees Left ankle DF with knee extended 10 degrees Right ankle DF with knee flexed 16 degrees Right ankle DF with knee extended 10 degrees Eversion and eversion WNL bilaterally Toe Range of Motion Toes ROM Limitations Comments WNL bilaterally all digits PT-OP-L Special Tests Start: 03/27/20 13:01 Freq: Status: Active Protocol: Document 03/27/20 13:05 AW (Rec: 03/27/20 15:13 AW [id number]) Special Tests Foot/Ankle Special Tests Anterior Draw Test Results (+) R Comments boggy end feel right side compared with left PT-OP-M Strength Start: 03/27/20 13:01 Freq: Status: Active Protocol: Document 03/27/20 13:05 AW (Rec: 03/27/20 15:13 AW [id number]) Hip Strength Hip Manual Muscle Testing Right Comments B hip strength grossly 4+/5 Knee Strength Knee Manual Muscle Testing Right Comments B knee strength grossly 5/5 Ankle/Foot Strength Ankle and Foot Manual Muscle Testing Right Dorsiflexion (L4) 4+ Good+ Plantarflexion (S1) 4- Good- Inversion 4+ Good+ Eversion (S1) 4+ Good+ Comments PF tested in standing. Pt able to complete 20 reps single leg heel raise on left side but only 6 reps on right side. Left ankle grossly 5/5 Toe Strength Toe Manual Muscle Testing Right Great Toe Comments B digits 1-5 4+/5 to 5/5 PT-OP-Q Treatments Start: 03/27/20 13:01 Freq: Status: Active Protocol: Document 04/11/20 15:42 TP (Rec: 04/11/20 16:17 TP [email or web address]) Cardio Equipment Bicycle (Upright) Duration (Minutes) 9 Resistance 6 Seat Position 4 Therapeutic Exercises Supine Exercises resisted DF/PF/inversion/eversion Supine Exercise Name resisted DF/PF/inversion/ eversion Side right Resistance level 2 Equipment Used TB Reps/Minutes 15 reps each plane Comments Reviewed for HEP, SEATED Sitting Exercises Eccentric PF Sitting Exercise Name Eccentric PF Side right Resistance level 2 Equipment Used TB Reps/Minutes 10 Comments Sitting 90/90, TB stretched from forefoot to above knee. Standing Exercises heel/toe walking Reps/Minutes 10 ft x2 each length heel raises Standing Exercise Name heel raises Side bilateral Equipment Used 6 step, floor Reps/Minutes 10 reps B, 5 reps R step up stretch Standing Exercise Name Ankle mobility (step up DF stretch) Side right Equipment Used 6 stairs Reps/Minutes 1 minute gastroc/soleus stretch Standing Exercise Name gastroc/soleus stretch Side bilateral Equipment Used step Reps/Minutes 2 minutes Neuro Re-Education Treatment Balance Activities Foam pad in // bars Details WBOS, NBOS, B tandem, SLS Surface unstable Equipment blue foam pad Reps/Duration 30 sec each Comments WBOS, NBOS, B tandem stance with head turns and EC. SLS EO /EC with cuing for glute facilitation. PT-OP-R Modalities Start: 03/27/20 13:01 Freq: Status: Active Protocol: Document 04/03/20 16:07 AW (Rec: 04/03/20 16:25 AW [email or web address]) Hot Pack/Cold Pack Treatment cryo cuff Location right ankle Patient Position Hooklying Treatment Duration (minutes) 10 Patient Tolerance Good PT-OP-T Assessment and Plan Start: 03/27/20 13:01 Freq: Status: Active Protocol: Document 04/11/20 15:42 TP (Rec: 04/11/20 16:17 TP [email or web address]) Physical Therapy Assessment Goals Six Impairment swelling right ankle Short Term Goal (STG) Figure 8 measurement of right ankle will be reduced to 49 cm . STG Duration 04/24/20 Five Impairment lack of confidence on uneven terrain Coin Purse Assembler Goal (LTG) Pt will walk 30 minutes on uneven terrain without increase in pain or swelling LTG Duration 05/22/20 Four Impairment pt scores 22/28 on FAAM sport subscale Assisted Goal (LTG) Pt will score 26/28 or greater on FAAM sport subscale to demonstrate improved involvement in pt's preferred activities. Three Impairment decreased right ankle strength Assisted Goal (LTG) Pt will demonstrate right ankle strength same as left, including single leg heel raises. LTG Duration 05/22/20 Two Impairment Pt has no appropriate HEP Short Term Goal (STG) Pt will be independent with HEP for support of therapy services provided in clinic STG Duration 04/24/20 Coin Purse Assembler Goal (LTG) Pt will be independent with maintenance H&P for improved right ankle stability LTG Duration 05/22/20 One Impairment Pt unable to run for exercise. Short Term Goal (STG) Pt will run 1/2 mile without increase in pain or swelling STG Duration 04/24/20 Assisted Goal (LTG) Pt will run 2 miles without increase in pain or swelling LTG Duration 05/22/20 Assessment Summary Assessment Pt strength improving as evidenced by improved performance of heel/toe walking and pt's reported ability to run 0.5miles. Pt also able to perform double heel raises on stairs, strengthening through full ROM . Became fatigued after 10 reps bilaterally + 5 reps on the R, saying her ankle felt jello-y. Pt needs to continue to improve strength to increase endurance and increased activity, including recreational activity of running. Education provided to focus on eccentric control during home exercises using a theraband and increasing running by 10% if pain free. Pt balance good on uneven surface (blue foam pad) in WBOS, NBOS, B tandem stance and SLS. Pt responds well to cues for activate glutes during SLS to keep pelvis level. Physical Therapy Plan Frequency and Duration Frequency of Treatment 1-2x/week Duration of Treatment 12 weeks Plan of Care Start Date 03/27/20 Plan of Care End Date 06/19/20 Therapeutic Interventions Therapeutic Interventions Balance Training,Gait Training ,Home Exercise Program,Joint Mobilizations,Manual Therapy, Neuromuscular Re-education, Patient/Caregiver Education, Soft Tissue Mobilization, Taping,Therapeutic Activities, Therapeutic Exercises Modalities Cold Pack/Ice Massage Other Therapeutic Interventions cryo cuff Next Visit Focus/Plan Next Note Type Treatment Note Next Visit Plan Warm-up with treadmill on incline, review HEP (squat taps, SLS uneven foam cushion, resisted ankle DF/PF/inversion/eversion , D1/D2 ankle DF, heel raises, toe/ heel walking, self ice massage, eccentric PF); ROM and strengthening right ankle; cryo cuff as needed. Increase functional movement.
--- NOTE | 2020-04-15 13:50 | PT.OTN ---
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 Visit Start Time 13:11 Visit Stop Time 13:50 Total Visit Minutes 39 Visit Number 02/10 Number of COMMERCIAL CORRESPONDENT Visits 3 PT-OP-B Current Condition Start: 03/27/20 13:01 Freq: Status: Active Protocol: Document 03/27/20 13:05 AW (Rec: 03/27/20 13:12 AW [id number]) Current Condition History of Current Condition Onset Date 02/26/20 Current Complaints right ankle pain History of Current Condition On February 25, Pebbles was playing kickball with her children. She was on an uneven surface as her dogs had been digging holes in the yard. She heard three cracks but felt little pain. She started to notice swelling that night and had bruising over the anterior and lateral aspects of her ankle over the next few days. She iced one time and tried compression but could not get a good fit with a brace. Her doctor ordered an x-ray which demonstrated no fracture and normal alignment. Her pain was 4/10 at worst but she arrives today with no pain. She reports limping and guarding over the course of several days. Pt experienced a similar injury at age 13 which she states was at least as bad. She runs 3 miles approximately every other day which she reports is very beneficial for her mental health. She reports no recent change in her mileage or terrain. She did buy new running shoes 3 months ago due to nagging diffuse bilateral ankle pain, but she does not believe the change in footwear contributed to her injury. She typically wears sandals during the summer. Following the advice of her primary care provider, pt has not been running since her injury. 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 If indicated, MRI could be performed for further evaluation. Report finds No fractures or dislocations. Ankle mortise is normally aligned. No suspicious bony lesions. Soft tissues: No tibiotalar joint effusion. Achilles tendon appears normal. Treatment Goals Patient/Caregiver Goals Pt would like to return to running and to be more comfortable on uneven terrain. Prior Functional Status Baseline Function- ADL's Independent Baseline Function- Mobility Independent Baseline Function- Recreation/Hobbies Pt runs 3 miles every other day. Current Functional Impairments (Reported) Functional Limitations- Mobility/Gait Decreased confidence on uneven terrain Functional Limitations- Recreation/ Unable to participate in Hobbies running Personal Factors Other Personal Factors That May Effect Previous similar injury at age Therapy/Recovery 13 PT-OP-C Subjective Start: 03/27/20 13:01 Freq: Status: Active Protocol: Document 04/15/20 13:11 TP (Rec: 04/15/20 14:01 TP [id number]) OP-PT Subjective Patient Comments Patient Comments Pt denies pain and reports there is no decline since previous tx. She has not been running again, but has done considerable housework and childcare with no symptoms. Would like to know what type of brace, if any, to purchase/ wear. PT-OP-D Balance Start: 03/27/20 13:01 Freq: Status: Active Protocol: Document 03/27/20 13:05 AW (Rec: 03/27/20 15:13 AW [id number]) OP-PT Balance Assessment Standing Balance Static Standing Balance Ability Normal Dynamic Standing Balance Ability Good Standing Balance Comments Single leg stance 25 seconds left side and 20 seconds right side with increased shaking/ instability. Romero Fall Scale Copyright Permission PT-OP-F Manual Assessment Start: 03/27/20 13:01 Freq: Status: Active Protocol: Document 03/27/20 13:05 AW (Rec: 03/27/20 15:13 AW [id number]) Manual Assessments Soft Tissue Assessment Soft Tissue Mobility Assessment Tenderness of lateral ankle Joint Mobility Assessment Joint Mobility Assessment Decreased posterior talar glide. Distal tib fib posterior and anterior glides normal. PT-OP-G Mobility & Gait Start: 03/27/20 13:01 Freq: Status: Active Protocol: Document 03/27/20 13:05 AW (Rec: 03/27/20 15:13 AW [id number]) OP Mobility Evaluation Functional Movements Squats Pt able to perform bilateral squat with good depth and heels flat. OP Gait Assessment Gait Gait Assistance Required: Independent Distance (Feet) 200 Assistive Devices Assistive Device None Gait Deviations General Gait Pattern Antalgic,Decreased Stride Length,Step-to Gait Comments Gait Comments Gait notable for decreased R LE stance time and decreased L LE step length. PT-OP-J Posture/Palpation/Skin Start: 03/27/20 13:01 Freq: Status: Active Protocol: Document 03/27/20 13:05 AW (Rec: 03/27/20 15:13 AW [id number]) Posture Evaluation Position Standing Weight Distribution Balanced Ankle/Foot Posture (L) Calcaneal Eversion,(R) Calcaneal Eversion Foot Arch (L) Low Arch,(R) Low Arch Toe Posture (L) Flexed Toes,(R) Flexed Toes Comments Posture Comments Slight calcaneal valgus in weightbearing with left more pronounced than right. Skin Assessment Edema Assessment Bilateral Ankle Comments Figure 8 measurements: L 49 cm ; R 51 cm PT-OP-K Range of Motion Start: 03/27/20 13:01 Freq: Status: Active Protocol: Document 03/27/20 13:05 AW (Rec: 03/27/20 15:13 AW [id number]) Knee Goniometric Range of Motion Knee ROM Limitations Comments B knee ROM WNL Ankle and Foot Goniometric Range of Motion Ankle and Foot ROM Limitations ROM Limitations Swelling Comments Left ankle DF with knee flexed 18 degrees Left ankle DF with knee extended 10 degrees Right ankle DF with knee flexed 16 degrees Right ankle DF with knee extended 10 degrees Eversion and eversion WNL bilaterally Toe Range of Motion Toes ROM Limitations Comments WNL bilaterally all digits PT-OP-L Special Tests Start: 03/27/20 13:01 Freq: Status: Active Protocol: Document 03/27/20 13:05 AW (Rec: 03/27/20 15:13 AW [id number]) Special Tests Foot/Ankle Special Tests Anterior Draw Test Results (+) R Comments boggy end feel right side compared with left PT-OP-M Strength Start: 03/27/20 13:01 Freq: Status: Active Protocol: Document 03/27/20 13:05 AW (Rec: 03/27/20 15:13 AW [id number]) Hip Strength Hip Manual Muscle Testing Right Comments B hip strength grossly 4+/5 Knee Strength Knee Manual Muscle Testing Right Comments B knee strength grossly 5/5 Ankle/Foot Strength Ankle and Foot Manual Muscle Testing Right Dorsiflexion (L4) 4+ Good+ Plantarflexion (S1) 4- Good- Inversion 4+ Good+ Eversion (S1) 4+ Good+ Comments PF tested in standing. Pt able to complete 20 reps single leg heel raise on left side but only 6 reps on right side. Left ankle grossly 5/5 Toe Strength Toe Manual Muscle Testing Right Great Toe Comments B digits 1-5 4+/5 to 5/5 PT-OP-Q Treatments Start: 03/27/20 13:01 Freq: Status: Active Protocol: Document 04/15/20 13:11 TP (Rec: 04/15/20 14:01 TP [id number]) Cardio Equipment Treadmill Duration (Minutes) 8 Speed 2.5 Incline 0 4min, 2.0 4min Therapeutic Exercises Supine Exercises resisted DF/PF/inversion/eversion Supine Exercise Name resisted DF/PF/inversion/ eversion Side right Resistance level 2 Equipment Used TB Reps/Minutes 10reps x 2sets each plane Comments Reviewed for HEP, SEATED Standing Exercises single leg deadlift Side right Equipment Used step used upright Reps/Minutes 10 Comments Cues to hinge at hip and knee alignment walking lunges Standing Exercise Name walking lunges Reps/Minutes 10 Comments Cues to move slowly, stopped due to discomfort in back single leg squat Standing Exercise Name single leg squat on bosu/on stair Side right Equipment Used bosu ball / stair Reps/Minutes 10reps x 2sets Comments Toe tap in back for balance, hands for suport, on stairs - heel off edge PT-OP-R Modalities Start: 03/27/20 13:01 Freq: Status: Active Protocol: Document 04/03/20 16:07 AW (Rec: 04/03/20 16:25 AW [id number]) Hot Pack/Cold Pack Treatment cryo cuff Location right ankle Patient Position Hooklying Treatment Duration (minutes) 10 Patient Tolerance Good PT-OP-T Assessment and Plan Start: 03/27/20 13:01 Freq: Status: Active Protocol: Document 04/15/20 13:11 TP (Rec: 04/15/20 14:01 TP [id number]) Physical Therapy Assessment Goals Six Impairment swelling right ankle Short Term Goal (STG) Figure 8 measurement of right ankle will be reduced to 49 cm . STG Duration 04/24/20 Five Impairment lack of confidence on uneven terrain Prison Goal (LTG) Pt will walk 30 minutes on uneven terrain without increase in pain or swelling LTG Duration 05/22/20 Four Impairment pt scores 22/28 on FAAM sport subscale Civil Engineering Professor Goal (LTG) Pt will score 26/28 or greater on FAAM sport subscale to demonstrate improved involvement in pt's preferred activities. Three Impairment decreased right ankle strength Civil Engineering Professor Goal (LTG) Pt will demonstrate right ankle strength same as left, including single leg heel raises. LTG Duration 05/22/20 Two Impairment Pt has no appropriate HEP Short Term Goal (STG) Pt will be independent with HEP for support of therapy services provided in clinic STG Duration 04/24/20 Civil Engineering Professor Goal (LTG) Pt will be independent with maintenance H&P for improved right ankle stability LTG Duration 05/22/20 One Impairment Pt unable to run for exercise. Short Term Goal (STG) Pt will run 1/2 mile without increase in pain or swelling STG Duration 04/24/20 Civil Engineering Professor Goal (LTG) Pt will run 2 miles without increase in pain or swelling LTG Duration 05/22/20 Assessment Summary Assessment Pt continues to improve strength and stability of R ankle and LE. Recommendation to not use brace if pt feels stable in the ankle. During treadmill walking and single leg squat on stair, pt exhibits R genu valgum and R ankle pronation, cued knee with midfoot alignment and glute facilitation. Improvement in demonstration. Good carryover in single leg hip hinge/deadlift in level pelvis and LE alignment from previous instruction today. Continue PT to increase strength and stability of R ankle and R LE for safe ambulation and performance of recreational activities. Pt experience fatigue in R LE with increased functional movement this tx. Physical Therapy Plan Frequency and Duration Frequency of Treatment 1-2x/week Duration of Treatment 12 weeks Plan of Care Start Date 03/27/20 Plan of Care End Date 06/19/20 Therapeutic Interventions Therapeutic Interventions Balance Training,Gait Training ,Home Exercise Program,Joint Mobilizations,Manual Therapy, Neuromuscular Re-education, Patient/Caregiver Education, Soft Tissue Mobilization, Taping,Therapeutic Activities, Therapeutic Exercises Modalities Cold Pack/Ice Massage Other Therapeutic Interventions cryo cuff Next Visit Focus/Plan Next Note Type Treatment Note Next Visit Plan Assess response to previous tx . Review HEP and added SL hip hinge DL and SL eccentric squat tap on stairs(squat taps, SLS uneven foam cushion, resisted ankle DF/PF/inversion/eversion , D1/D2 ankle DF, heel raises, toe/ heel walking, self ice massage, eccentric PF); Continue per PT POC: ROM and strengthening right ankle; cryo cuff as needed. Increase functional movement. R hip abduction strenghtening to decrease genu valgum and ankle pronation.
--- NOTE | 2020-04-18 16:06 | PT.OTN ---
Current Diagnoses Difficulty in walking, not elsewhere classified (04/18/20) Sprain of unspecified ligament of right ankle, initial encounter (04/18/20) Physical Therapy Treatment Note PT-OP-A Visit Information Start: 03/27/20 13:01 Freq: Status: Active Protocol: Document 04/18/20 15:21 [facility] (Rec: 04/18/20 16:06 [facility] [id number]) Out-Patient Physical Therapy Visit Information Visit Information Visit Type Treatment Note Visit Start Time 15:16 Visit Stop Time 16:00 Total Visit Minutes 44 Visit Number 03/13 Number of GENERAL WAREHOUSE WORKER Visits 0 PT-OP-B Current Condition Start: 03/27/20 13:01 Freq: Status: Active Protocol: Document 03/27/20 13:05 AW (Rec: 03/27/20 13:12 AW [id number]) Current Condition History of Current Condition Onset Date 02/26/20 Current Complaints right ankle pain History of Current Condition On February 25, Pebbles was playing kickball with her children. She was on an uneven surface as her dogs had been digging holes in the yard. She heard three cracks but felt little pain. She started to notice swelling that night and had bruising over the anterior and lateral aspects of her ankle over the next few days. She iced one time and tried compression but could not get a good fit with a brace. Her doctor ordered an x-ray which demonstrated no fracture and normal alignment. Her pain was 4/10 at worst but she arrives today with no pain. She reports limping and guarding over the course of several days. Pt experienced a similar injury at age 13 which she states was at least as bad. She runs 3 miles approximately every other day which she reports is very beneficial for her mental health. She reports no recent change in her mileage or terrain. She did buy new running shoes 3 months ago due to nagging diffuse bilateral ankle pain, but she does not believe the change in footwear contributed to her injury. She typically wears sandals during the summer. Following the advice of her primary care provider, pt has not been running since her injury. 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 If indicated, MRI could be performed for further evaluation. Report finds No fractures or dislocations. Ankle mortise is normally aligned. No suspicious bony lesions. Soft tissues: No tibiotalar joint effusion. Achilles tendon appears normal. Treatment Goals Patient/Caregiver Goals Pt would like to return to running and to be more comfortable on uneven terrain. Prior Functional Status Baseline Function- ADL's Independent Baseline Function- Mobility Independent Baseline Function- Recreation/Hobbies Pt runs 3 miles every other day. Current Functional Impairments (Reported) Functional Limitations- Mobility/Gait Decreased confidence on uneven terrain Functional Limitations- Recreation/ Unable to participate in Hobbies running Personal Factors Other Personal Factors That May Effect Previous similar injury at age Therapy/Recovery 13 PT-OP-C Subjective Start: 03/27/20 13:01 Freq: Status: Active Protocol: Document 04/18/20 15:21 [facility] (Rec: 04/18/20 16:06 [facility] [id number]) OP-PT Subjective Patient Comments Patient Comments Pt reports overall no pain but still some swelling. She ran a mile and on the last half mile, she had pain in plantar surface of B feet. Never has had that pain before. She has not ran in 2-3 months. Reports she still feels unstable some when turning quick. Patient Reported Progress Improving PT-OP-D Balance Start: 03/27/20 13:01 Freq: Status: Active Protocol: Document 03/27/20 13:05 AW (Rec: 03/27/20 15:13 AW [id number]) OP-PT Balance Assessment Standing Balance Static Standing Balance Ability Normal Dynamic Standing Balance Ability Good Standing Balance Comments Single leg stance 25 seconds left side and 20 seconds right side with increased shaking/ instability. Romero Fall Scale Copyright Permission PT-OP-F Manual Assessment Start: 03/27/20 13:01 Freq: Status: Active Protocol: Document 03/27/20 13:05 AW (Rec: 03/27/20 15:13 AW [id number]) Manual Assessments Soft Tissue Assessment Soft Tissue Mobility Assessment Tenderness of lateral ankle Joint Mobility Assessment Joint Mobility Assessment Decreased posterior talar glide. Distal tib fib posterior and anterior glides normal. PT-OP-G Mobility & Gait Start: 03/27/20 13:01 Freq: Status: Active Protocol: Document 03/27/20 13:05 AW (Rec: 03/27/20 15:13 AW [id number]) OP Mobility Evaluation Functional Movements Squats Pt able to perform bilateral squat with good depth and heels flat. OP Gait Assessment Gait Gait Assistance Required: Independent Distance (Feet) 200 Assistive Devices Assistive Device None Gait Deviations General Gait Pattern Antalgic,Decreased Stride Length,Step-to Gait Comments Gait Comments Gait notable for decreased R LE stance time and decreased L LE step length. PT-OP-J Posture/Palpation/Skin Start: 03/27/20 13:01 Freq: Status: Active Protocol: Document 03/27/20 13:05 AW (Rec: 03/27/20 15:13 AW [id number]) Posture Evaluation Position Standing Weight Distribution Balanced Ankle/Foot Posture (L) Calcaneal Eversion,(R) Calcaneal Eversion Foot Arch (L) Low Arch,(R) Low Arch Toe Posture (L) Flexed Toes,(R) Flexed Toes Comments Posture Comments Slight calcaneal valgus in weightbearing with left more pronounced than right. Skin Assessment Edema Assessment Bilateral Ankle Comments Figure 8 measurements: L 49 cm ; R 51 cm PT-OP-K Range of Motion Start: 03/27/20 13:01 Freq: Status: Active Protocol: Document 03/27/20 13:05 AW (Rec: 03/27/20 15:13 AW [id number]) Knee Goniometric Range of Motion Knee ROM Limitations Comments B knee ROM WNL Ankle and Foot Goniometric Range of Motion Ankle and Foot ROM Limitations ROM Limitations Swelling Comments Left ankle DF with knee flexed 18 degrees Left ankle DF with knee extended 10 degrees Right ankle DF with knee flexed 16 degrees Right ankle DF with knee extended 10 degrees Eversion and eversion WNL bilaterally Toe Range of Motion Toes ROM Limitations Comments WNL bilaterally all digits PT-OP-L Special Tests Start: 03/27/20 13:01 Freq: Status: Active Protocol: Document 03/27/20 13:05 AW (Rec: 03/27/20 15:13 AW [id number]) Special Tests Foot/Ankle Special Tests Anterior Draw Test Results (+) R Comments boggy end feel right side compared with left PT-OP-M Strength Start: 03/27/20 13:01 Freq: Status: Active Protocol: Document 03/27/20 13:05 AW (Rec: 03/27/20 15:13 AW [id number]) Hip Strength Hip Manual Muscle Testing Right Comments B hip strength grossly 4+/5 Knee Strength Knee Manual Muscle Testing Right Comments B knee strength grossly 5/5 Ankle/Foot Strength Ankle and Foot Manual Muscle Testing Right Dorsiflexion (L4) 4+ Good+ Plantarflexion (S1) 4- Good- Inversion 4+ Good+ Eversion (S1) 4+ Good+ Comments PF tested in standing. Pt able to complete 20 reps single leg heel raise on left side but only 6 reps on right side. Left ankle grossly 5/5 Toe Strength Toe Manual Muscle Testing Right Great Toe Comments B digits 1-5 4+/5 to 5/5 PT-OP-Q Treatments Start: 03/27/20 13:01 Freq: Status: Active Protocol: Document 04/18/20 15:21 [facility] (Rec: 04/18/20 16:06 [facility] [id number]) Cardio Equipment Treadmill Duration (Minutes) 6 Speed 2.5 Incline 2 Gym Equipment Shuttle Balance red clips Details WBOS balance & wt shifts Therapeutic Exercises Standing Exercises dynamic warm up Standing Exercise Name leg swings fwd/back, side/side ,around the world, ankle circles Side bilateral Reps/Minutes 15 ea single leg deadlift Standing Exercise Name cues for no lat lean on single leg Side right Reps/Minutes 10 Comments Cues to hinge at hip and knee alignment Manual Therapy Treatment Soft Tissue Mobilization plantar fascia Mobilization Type Rolling Neuro Re-Education Treatment Balance Activities SLS Details in mirror focus on no lat lean of pelvis Self-Care/Home Management Treatment Education Other Education shoe tying to dec pronation, edu on why dynamic warm up and static stretchs fro after running instead, edu on walking prior to starting running, edu on posture PT-OP-R Modalities Start: 03/27/20 13:01 Freq: Status: Active Protocol: Document 04/03/20 16:07 AW (Rec: 04/03/20 16:25 AW [id number]) Hot Pack/Cold Pack Treatment cryo cuff Location right ankle Patient Position Hooklying Treatment Duration (minutes) 10 Patient Tolerance Good PT-OP-T Assessment and Plan Start: 03/27/20 13:01 Freq: Status: Active Protocol: Document 04/18/20 15:21 [facility] (Rec: 04/18/20 16:06 [facility] [id number]) Physical Therapy Assessment Goals Six Impairment swelling right ankle Short Term Goal (STG) Figure 8 measurement of right ankle will be reduced to 49 cm . STG Duration 04/24/20 Five Impairment lack of confidence on uneven terrain Residential Goal (LTG) Pt will walk 30 minutes on uneven terrain without increase in pain or swelling LTG Duration 05/22/20 Four Impairment pt scores 22/28 on FAAM sport subscale Residential Goal (LTG) Pt will score 26/28 or greater on FAAM sport subscale to demonstrate improved involvement in pt's preferred activities. Three Impairment decreased right ankle strength Rolling Chair Pusher Goal (LTG) Pt will demonstrate right ankle strength same as left, including single leg heel raises. LTG Duration 05/22/20 Two Impairment Pt has no appropriate HEP Short Term Goal (STG) Pt will be independent with HEP for support of therapy services provided in clinic STG Duration 04/24/20 Residential Goal (LTG) Pt will be independent with maintenance H&P for improved right ankle stability LTG Duration 05/22/20 One Impairment Pt unable to run for exercise. Short Term Goal (STG) Pt will run 1/2 mile without increase in pain or swelling STG Duration 04/24/20 Residential Goal (LTG) Pt will run 2 miles without increase in pain or swelling LTG Duration 05/22/20 Assessment Summary Assessment Pt required significant cueing during exercises to maintain good form. Edu on proper warm up (dynamic vs static) and on rolling on plantar fascia d/t tightness. Physical Therapy Plan Frequency and Duration Frequency of Treatment 1-2x/week Duration of Treatment 12 weeks Plan of Care Start Date 03/27/20 Plan of Care End Date 06/19/20 Next Visit Focus/Plan Next Note Type Treatment Note Next Visit Plan work on uneven surfaces & review lunges & hip hinges, check running form
--- NOTE | 2020-04-22 13:50 | PT.OTN ---
Current Diagnoses Difficulty in walking, not elsewhere classified (04/22/20) Sprain of unspecified ligament of right ankle, initial encounter (04/22/20) Physical Therapy Treatment Note PT-OP-A Visit Information Start: 03/27/20 13:01 Freq: Status: Active Protocol: Document 04/22/20 13:08 SP (Rec: 04/22/20 13:50 SP [id number]) Out-Patient Physical Therapy Visit Information Visit Information Visit Type Treatment Note Visit Note Brought patient back late. Visit Start Time 13:08 Visit Stop Time 13:50 Total Visit Minutes 42 Visit Number 04/12 Number of INDUSTRIAL X RAY OPERATOR Visits 1 PT-OP-B Current Condition Start: 03/27/20 13:01 Freq: Status: Active Protocol: Document 03/27/20 13:05 AW (Rec: 03/27/20 13:12 AW [id number]) Current Condition History of Current Condition Onset Date 02/26/20 Current Complaints right ankle pain History of Current Condition On February 25, Pebbles was playing kickball with her children. She was on an uneven surface as her dogs had been digging holes in the yard. She heard three cracks but felt little pain. She started to notice swelling that night and had bruising over the anterior and lateral aspects of her ankle over the next few days. She iced one time and tried compression but could not get a good fit with a brace. Her doctor ordered an x-ray which demonstrated no fracture and normal alignment. Her pain was 4/10 at worst but she arrives today with no pain. She reports limping and guarding over the course of several days. Pt experienced a similar injury at age 13 which she states was at least as bad. She runs 3 miles approximately every other day which she reports is very beneficial for her mental health. She reports no recent change in her mileage or terrain. She did buy new running shoes 3 months ago due to nagging diffuse bilateral ankle pain, but she does not believe the change in footwear contributed to her injury. She typically wears sandals during the summer. Following the advice of her primary care provider, pt has not been running since her injury. 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 If indicated, MRI could be performed for further evaluation. Report finds No fractures or dislocations. Ankle mortise is normally aligned. No suspicious bony lesions. Soft tissues: No tibiotalar joint effusion. Achilles tendon appears normal. Treatment Goals Patient/Caregiver Goals Pt would like to return to running and to be more comfortable on uneven terrain. Prior Functional Status Baseline Function- ADL's Independent Baseline Function- Mobility Independent Baseline Function- Recreation/Hobbies Pt runs 3 miles every other day. Current Functional Impairments (Reported) Functional Limitations- Mobility/Gait Decreased confidence on uneven terrain Functional Limitations- Recreation/ Unable to participate in Hobbies running Personal Factors Other Personal Factors That May Effect Previous similar injury at age Therapy/Recovery 13 PT-OP-C Subjective Start: 03/27/20 13:01 Freq: Status: Active Protocol: Document 04/22/20 13:08 SP (Rec: 04/22/20 13:50 SP [id number]) OP-PT Subjective Patient Comments Patient Comments Pt commented that felt fine after last tx, was really grateful of warm up movement and stretching before running. PT-OP-D Balance Start: 03/27/20 13:01 Freq: Status: Active Protocol: Document 03/27/20 13:05 AW (Rec: 03/27/20 15:13 AW [id number]) OP-PT Balance Assessment Standing Balance Static Standing Balance Ability Normal Dynamic Standing Balance Ability Good Standing Balance Comments Single leg stance 25 seconds left side and 20 seconds right side with increased shaking/ instability. Romero Fall Scale Copyright Permission PT-OP-F Manual Assessment Start: 03/27/20 13:01 Freq: Status: Active Protocol: Document 03/27/20 13:05 AW (Rec: 03/27/20 15:13 AW [id number]) Manual Assessments Soft Tissue Assessment Soft Tissue Mobility Assessment Tenderness of lateral ankle Joint Mobility Assessment Joint Mobility Assessment Decreased posterior talar glide. Distal tib fib posterior and anterior glides normal. PT-OP-G Mobility & Gait Start: 03/27/20 13:01 Freq: Status: Active Protocol: Document 03/27/20 13:05 AW (Rec: 03/27/20 15:13 AW [id number]) OP Mobility Evaluation Functional Movements Squats Pt able to perform bilateral squat with good depth and heels flat. OP Gait Assessment Gait Gait Assistance Required: Independent Distance (Feet) 200 Assistive Devices Assistive Device None Gait Deviations General Gait Pattern Antalgic,Decreased Stride Length,Step-to Gait Comments Gait Comments Gait notable for decreased R LE stance time and decreased L LE step length. PT-OP-J Posture/Palpation/Skin Start: 03/27/20 13:01 Freq: Status: Active Protocol: Document 03/27/20 13:05 AW (Rec: 03/27/20 15:13 AW [id number]) Posture Evaluation Position Standing Weight Distribution Balanced Ankle/Foot Posture (L) Calcaneal Eversion,(R) Calcaneal Eversion Foot Arch (L) Low Arch,(R) Low Arch Toe Posture (L) Flexed Toes,(R) Flexed Toes Comments Posture Comments Slight calcaneal valgus in weightbearing with left more pronounced than right. Skin Assessment Edema Assessment Bilateral Ankle Comments Figure 8 measurements: L 49 cm ; R 51 cm PT-OP-K Range of Motion Start: 03/27/20 13:01 Freq: Status: Active Protocol: Document 03/27/20 13:05 AW (Rec: 03/27/20 15:13 AW [id number]) Knee Goniometric Range of Motion Knee ROM Limitations Comments B knee ROM WNL Ankle and Foot Goniometric Range of Motion Ankle and Foot ROM Limitations ROM Limitations Swelling Comments Left ankle DF with knee flexed 18 degrees Left ankle DF with knee extended 10 degrees Right ankle DF with knee flexed 16 degrees Right ankle DF with knee extended 10 degrees Eversion and eversion WNL bilaterally Toe Range of Motion Toes ROM Limitations Comments WNL bilaterally all digits PT-OP-L Special Tests Start: 03/27/20 13:01 Freq: Status: Active Protocol: Document 03/27/20 13:05 AW (Rec: 03/27/20 15:13 AW [id number]) Special Tests Foot/Ankle Special Tests Anterior Draw Test Results (+) R Comments boggy end feel right side compared with left PT-OP-M Strength Start: 03/27/20 13:01 Freq: Status: Active Protocol: Document 03/27/20 13:05 AW (Rec: 03/27/20 15:13 AW [id number]) Hip Strength Hip Manual Muscle Testing Right Comments B hip strength grossly 4+/5 Knee Strength Knee Manual Muscle Testing Right Comments B knee strength grossly 5/5 Ankle/Foot Strength Ankle and Foot Manual Muscle Testing Right Dorsiflexion (L4) 4+ Good+ Plantarflexion (S1) 4- Good- Inversion 4+ Good+ Eversion (S1) 4+ Good+ Comments PF tested in standing. Pt able to complete 20 reps single leg heel raise on left side but only 6 reps on right side. Left ankle grossly 5/5 Toe Strength Toe Manual Muscle Testing Right Great Toe Comments B digits 1-5 4+/5 to 5/5 PT-OP-Q Treatments Start: 03/27/20 13:01 Freq: Status: Active Protocol: Document 04/22/20 13:08 SP (Rec: 04/22/20 13:50 SP [id number]) Cardio Equipment Treadmill Duration (Minutes) 6 Speed 2.5-3.9 Incline 2 2 min 2.5 , 3.9: 0 2 min, -1 2 min Gym Equipment Shuttle Balance red clips Details WBOS, NBOS, stagger balance & wt shifts Comments head turns,EO, EC (3 sec) Therapeutic Exercises Standing Exercises dynamic warm up Standing Exercise Name leg swings fwd/back, side/side ,around the world, ankle mobillty, LS CW/CCW Side bilateral Reps/Minutes 15 ea walking lunges Standing Exercise Name stationary lunges Comments cued alignment: knees with toes and behind feet Neuro Re-Education Treatment Balance Activities SLS Details in mirror focus on no lat lean of pelvis PT-OP-R Modalities Start: 03/27/20 13:01 Freq: Status: Active Protocol: Document 04/03/20 16:07 AW (Rec: 04/03/20 16:25 AW [id number]) Hot Pack/Cold Pack Treatment cryo cuff Location right ankle Patient Position Hooklying Treatment Duration (minutes) 10 Patient Tolerance Good PT-OP-T Assessment and Plan Start: 03/27/20 13:01 Freq: Status: Active Protocol: Document 04/22/20 13:08 SP (Rec: 04/22/20 13:50 SP [id number]) Physical Therapy Assessment Goals Six Impairment swelling right ankle Short Term Goal (STG) Figure 8 measurement of right ankle will be reduced to 49 cm . STG Duration 04/24/20 Five Impairment lack of confidence on uneven terrain Jigsaw Operator Goal (LTG) Pt will walk 30 minutes on uneven terrain without increase in pain or swelling LTG Duration 05/22/20 Four Impairment pt scores 22/28 on FAAM sport subscale Intermediate Goal (LTG) Pt will score 26/28 or greater on FAAM sport subscale to demonstrate improved involvement in pt's preferred activities. Three Impairment decreased right ankle strength Jigsaw Operator Goal (LTG) Pt will demonstrate right ankle strength same as left, including single leg heel raises. LTG Duration 05/22/20 Two Impairment Pt has no appropriate HEP Short Term Goal (STG) Pt will be independent with HEP for support of therapy services provided in clinic STG Duration 04/24/20 Jigsaw Operator Goal (LTG) Pt will be independent with maintenance H&P for improved right ankle stability LTG Duration 05/22/20 One Impairment Pt unable to run for exercise. Short Term Goal (STG) Pt will run 1/2 mile without increase in pain or swelling STG Duration 04/24/20 Intermediate Goal (LTG) Pt will run 2 miles without increase in pain or swelling LTG Duration 05/22/20 Assessment Summary Assessment Review dynamic warm up, assessed alignment jogging on TM B knee valgus and some pronation leaded to scissor gait times, cued for space between BLE. HEP review: cuing required for knees behind and with toes during lunges and able to increase NBOS and stagger on shuttle balance. Pt improvement in self corrections COG over AMADA. Physical Therapy Plan Frequency and Duration Frequency of Treatment 1-2x/week Duration of Treatment 12 weeks Plan of Care Start Date 03/27/20 Plan of Care End Date 06/19/20 Therapeutic Interventions Therapeutic Interventions Balance Training,Gait Training ,Home Exercise Program,Joint Mobilizations,Manual Therapy, Neuromuscular Re-education, Patient/Caregiver Education, Soft Tissue Mobilization, Taping,Therapeutic Activities, Therapeutic Exercises Modalities Cold Pack/Ice Massage Other Therapeutic Interventions cryo cuff Next Visit Focus/Plan Next Note Type Treatment Note Next Visit Plan work on uneven surfaces & review lunges & hip hinges, check running form
--- NOTE | 2020-04-24 17:23 | PT.OTN ---
Current Diagnoses Difficulty in walking, not elsewhere classified (04/24/20) Sprain of unspecified ligament of right ankle, initial encounter (04/24/20) Physical Therapy Treatment Note PT-OP-A Visit Information Start: 03/27/20 13:01 Freq: Status: Active Protocol: Document 04/24/20 15:24 AW (Rec: 04/24/20 17:22 AW [id number]) Out-Patient Physical Therapy Visit Information Visit Information Visit Type Treatment Note Visit Start Time 15:20 Visit Stop Time 16:00 Total Visit Minutes 40 Visit Number 05/13 Number of FLIGHT CONTROL SPECIALIST Visits 1 PT-OP-B Current Condition Start: 03/27/20 13:01 Freq: Status: Active Protocol: Document 03/27/20 13:05 AW (Rec: 03/27/20 13:12 AW [id number]) Current Condition History of Current Condition Onset Date 02/26/20 Current Complaints right ankle pain History of Current Condition On February 25, Pebbles was playing kickball with her children. She was on an uneven surface as her dogs had been digging holes in the yard. She heard three cracks but felt little pain. She started to notice swelling that night and had bruising over the anterior and lateral aspects of her ankle over the next few days. She iced one time and tried compression but could not get a good fit with a brace. Her doctor ordered an x-ray which demonstrated no fracture and normal alignment. Her pain was 4/10 at worst but she arrives today with no pain. She reports limping and guarding over the course of several days. Pt experienced a similar injury at age 13 which she states was at least as bad. She runs 3 miles approximately every other day which she reports is very beneficial for her mental health. She reports no recent change in her mileage or terrain. She did buy new running shoes 3 months ago due to nagging diffuse bilateral ankle pain, but she does not believe the change in footwear contributed to her injury. She typically wears sandals during the summer. Following the advice of her primary care provider, pt has not been running since her injury. 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 If indicated, MRI could be performed for further evaluation. Report finds No fractures or dislocations. Ankle mortise is normally aligned. No suspicious bony lesions. Soft tissues: No tibiotalar joint effusion. Achilles tendon appears normal. Treatment Goals Patient/Caregiver Goals Pt would like to return to running and to be more comfortable on uneven terrain. Prior Functional Status Baseline Function- ADL's Independent Baseline Function- Mobility Independent Baseline Function- Recreation/Hobbies Pt runs 3 miles every other day. Current Functional Impairments (Reported) Functional Limitations- Mobility/Gait Decreased confidence on uneven terrain Functional Limitations- Recreation/ Unable to participate in Hobbies running Personal Factors Other Personal Factors That May Effect Previous similar injury at age Therapy/Recovery 13 PT-OP-C Subjective Start: 03/27/20 13:01 Freq: Status: Active Protocol: Document 04/24/20 15:24 AW (Rec: 04/24/20 17:22 AW [id number]) OP-PT Subjective Patient Comments Patient Comments Pt ran 1 mile last week and 1. 5 miles twice this week. Pt has had no ankle pain, but does report lateral foot pain/ fatigue with increased distance. Patient Reported Progress Improving PT-OP-D Balance Start: 03/27/20 13:01 Freq: Status: Active Protocol: Document 03/27/20 13:05 AW (Rec: 03/27/20 15:13 AW [id number]) OP-PT Balance Assessment Standing Balance Static Standing Balance Ability Normal Dynamic Standing Balance Ability Good Standing Balance Comments Single leg stance 25 seconds left side and 20 seconds right side with increased shaking/ instability. Romero Fall Scale Copyright Permission PT-OP-F Manual Assessment Start: 03/27/20 13:01 Freq: Status: Active Protocol: Document 03/27/20 13:05 AW (Rec: 03/27/20 15:13 AW [id number]) Manual Assessments Soft Tissue Assessment Soft Tissue Mobility Assessment Tenderness of lateral ankle Joint Mobility Assessment Joint Mobility Assessment Decreased posterior talar glide. Distal tib fib posterior and anterior glides normal. PT-OP-G Mobility & Gait Start: 03/27/20 13:01 Freq: Status: Active Protocol: Document 03/27/20 13:05 AW (Rec: 03/27/20 15:13 AW [id number]) OP Mobility Evaluation Functional Movements Squats Pt able to perform bilateral squat with good depth and heels flat. OP Gait Assessment Gait Gait Assistance Required: Independent Distance (Feet) 200 Assistive Devices Assistive Device None Gait Deviations General Gait Pattern Antalgic,Decreased Stride Length,Step-to Gait Comments Gait Comments Gait notable for decreased R LE stance time and decreased L LE step length. PT-OP-J Posture/Palpation/Skin Start: 03/27/20 13:01 Freq: Status: Active Protocol: Document 03/27/20 13:05 AW (Rec: 03/27/20 15:13 AW [id number]) Posture Evaluation Position Standing Weight Distribution Balanced Ankle/Foot Posture (L) Calcaneal Eversion,(R) Calcaneal Eversion Foot Arch (L) Low Arch,(R) Low Arch Toe Posture (L) Flexed Toes,(R) Flexed Toes Comments Posture Comments Slight calcaneal valgus in weightbearing with left more pronounced than right. Skin Assessment Edema Assessment Bilateral Ankle Comments Figure 8 measurements: L 49 cm ; R 51 cm PT-OP-K Range of Motion Start: 03/27/20 13:01 Freq: Status: Active Protocol: Document 03/27/20 13:05 AW (Rec: 03/27/20 15:13 AW [id number]) Knee Goniometric Range of Motion Knee ROM Limitations Comments B knee ROM WNL Ankle and Foot Goniometric Range of Motion Ankle and Foot ROM Limitations ROM Limitations Swelling Comments Left ankle DF with knee flexed 18 degrees Left ankle DF with knee extended 10 degrees Right ankle DF with knee flexed 16 degrees Right ankle DF with knee extended 10 degrees Eversion and eversion WNL bilaterally Toe Range of Motion Toes ROM Limitations Comments WNL bilaterally all digits PT-OP-L Special Tests Start: 03/27/20 13:01 Freq: Status: Active Protocol: Document 03/27/20 13:05 AW (Rec: 03/27/20 15:13 AW [id number]) Special Tests Foot/Ankle Special Tests Anterior Draw Test Results (+) R Comments boggy end feel right side compared with left PT-OP-M Strength Start: 03/27/20 13:01 Freq: Status: Active Protocol: Document 03/27/20 13:05 AW (Rec: 03/27/20 15:13 AW [id number]) Hip Strength Hip Manual Muscle Testing Right Comments B hip strength grossly 4+/5 Knee Strength Knee Manual Muscle Testing Right Comments B knee strength grossly 5/5 Ankle/Foot Strength Ankle and Foot Manual Muscle Testing Right Dorsiflexion (L4) 4+ Good+ Plantarflexion (S1) 4- Good- Inversion 4+ Good+ Eversion (S1) 4+ Good+ Comments PF tested in standing. Pt able to complete 20 reps single leg heel raise on left side but only 6 reps on right side. Left ankle grossly 5/5 Toe Strength Toe Manual Muscle Testing Right Great Toe Comments B digits 1-5 4+/5 to 5/5 PT-OP-Q Treatments Start: 03/27/20 13:01 Freq: Status: Active Protocol: Document 04/24/20 15:24 AW (Rec: 04/24/20 17:22 AW [id number]) Cardio Equipment Treadmill Duration (Minutes) 6 Speed 2.5-4.0 Other 3 min at 2.5; 3 min at 4.0 Gym Equipment Shuttle Balance red clips Details WBOS, NBOS, mini squat Reps/Duration 10 min Comments head turns,EO, EC (3 sec) Therapeutic Exercises Standing Exercises monster walk Standing Exercise Name monster walk Side bilateral Resistance yellow Equipment Used TB Reps/Minutes 15 foot laps x 2 isometric glut med at wall Standing Exercise Name isometric glut med at wall Side bilateral Equipment Used purple ball Reps/Minutes 5 sec hold x 10 Comments cues for neutral pelvis bosu step up Standing Exercise Name bosu step up Side right Reps/Minutes 15 reps x 2 Comments forward and lateral dynamic warm up Standing Exercise Name hip rotation, HS stretch, quad stretch, side step with adductor stretch Side bilateral Reps/Minutes 15 ft laps each movement single heel raise Side bilateral Equipment Used 6 step Reps/Minutes x 6 each side Comments cued med/lat stability, slow descent PT-OP-R Modalities Start: 03/27/20 13:01 Freq: Status: Active Protocol: Document 04/03/20 16:07 AW (Rec: 04/03/20 16:25 AW [id number]) Hot Pack/Cold Pack Treatment cryo cuff Location right ankle Patient Position Hooklying Treatment Duration (minutes) 10 Patient Tolerance Good PT-OP-T Assessment and Plan Start: 03/27/20 13:01 Freq: Status: Active Protocol: Document 04/24/20 15:24 AW (Rec: 04/24/20 17:22 AW [id number]) Physical Therapy Assessment Goals Six Impairment swelling right ankle Short Term Goal (STG) Figure 8 measurement of right ankle will be reduced to 49 cm . STG Duration 04/24/20 Five Impairment lack of confidence on uneven terrain Mcfp Goal (LTG) Pt will walk 30 minutes on uneven terrain without increase in pain or swelling LTG Duration 05/22/20 Four Impairment pt scores 22/28 on FAAM sport subscale Mortgage Advisor Goal (LTG) Pt will score 26/28 or greater on FAAM sport subscale to demonstrate improved involvement in pt's preferred activities. Three Impairment decreased right ankle strength Mortgage Advisor Goal (LTG) Pt will demonstrate right ankle strength same as left, including single leg heel raises. LTG Duration 05/22/20 Two Impairment Pt has no appropriate HEP Short Term Goal (STG) Pt will be independent with HEP for support of therapy services provided in clinic STG Duration 04/24/20 Mortgage Advisor Goal (LTG) Pt will be independent with maintenance H&P for improved right ankle stability LTG Duration 05/22/20 One Impairment Pt unable to run for exercise. Short Term Goal (STG) Pt will run 1/2 mile without increase in pain or swelling STG Duration 04/24/20 Mcfp Goal (LTG) Pt will run 2 miles without increase in pain or swelling LTG Duration 05/22/20 Assessment Summary Assessment Pt is progressing with ankle stability. Contralateral hip drop noted in running gait which was addressed with specific glute med strengthening and education. Pt appreciates education, stating Halima been learning something at every visit. Physical Therapy Plan Frequency and Duration Frequency of Treatment 1-2x/week Duration of Treatment 12 weeks Plan of Care Start Date 03/27/20 Plan of Care End Date 06/19/20 Therapeutic Interventions Therapeutic Interventions Balance Training,Gait Training ,Home Exercise Program,Joint Mobilizations,Manual Therapy, Neuromuscular Re-education, Patient/Caregiver Education, Soft Tissue Mobilization, Taping,Therapeutic Activities, Therapeutic Exercises Modalities Cold Pack/Ice Massage Other Therapeutic Interventions cryo cuff Next Visit Focus/Plan Next Note Type Treatment Note Next Visit Plan work on uneven surfaces & review lunges & hip hinges, check running form; assess STG
--- NOTE | 2020-05-01 17:02 | PT-OP ANOTE ---
Pt no showed today. Called to check on pt and left message reminding her of attendance policy
--- NOTE | 2020-05-06 13:45 | PT.OTN ---
Current Diagnoses Difficulty in walking, not elsewhere classified (05/06/20) Sprain of unspecified ligament of right ankle, initial encounter (05/06/20) Physical Therapy Treatment Note PT-OP-A Visit Information Start: 03/27/20 13:01 Freq: Status: Active Protocol: Document 05/06/20 13:00 SP (Rec: 05/06/20 13:48 SP [id number]) Out-Patient Physical Therapy Visit Information Visit Information Visit Type Treatment Note Visit Start Time 13:00 Visit Stop Time 13:45 Total Visit Minutes 45 Visit Number 06/13 Number of DRAFTER CARTOGRAPHIC Visits 1 PT-OP-B Current Condition Start: 03/27/20 13:01 Freq: Status: Active Protocol: Document 03/27/20 13:05 AW (Rec: 03/27/20 13:12 AW [id number]) Current Condition History of Current Condition Onset Date 02/26/20 Current Complaints right ankle pain History of Current Condition On February 25, Pebbles was playing kickball with her children. She was on an uneven surface as her dogs had been digging holes in the yard. She heard three cracks but felt little pain. She started to notice swelling that night and had bruising over the anterior and lateral aspects of her ankle over the next few days. She iced one time and tried compression but could not get a good fit with a brace. Her doctor ordered an x-ray which demonstrated no fracture and normal alignment. Her pain was 4/10 at worst but she arrives today with no pain. She reports limping and guarding over the course of several days. Pt experienced a similar injury at age 13 which she states was at least as bad. She runs 3 miles approximately every other day which she reports is very beneficial for her mental health. She reports no recent change in her mileage or terrain. She did buy new running shoes 3 months ago due to nagging diffuse bilateral ankle pain, but she does not believe the change in footwear contributed to her injury. She typically wears sandals during the summer. Following the advice of her primary care provider, pt has not been running since her injury. 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 If indicated, MRI could be performed for further evaluation. Report finds No fractures or dislocations. Ankle mortise is normally aligned. No suspicious bony lesions. Soft tissues: No tibiotalar joint effusion. Achilles tendon appears normal. Treatment Goals Patient/Caregiver Goals Pt would like to return to running and to be more comfortable on uneven terrain. Prior Functional Status Baseline Function- ADL's Independent Baseline Function- Mobility Independent Baseline Function- Recreation/Hobbies Pt runs 3 miles every other day. Current Functional Impairments (Reported) Functional Limitations- Mobility/Gait Decreased confidence on uneven terrain Functional Limitations- Recreation/ Unable to participate in Hobbies running Personal Factors Other Personal Factors That May Effect Previous similar injury at age Therapy/Recovery 13 PT-OP-C Subjective Start: 03/27/20 13:01 Freq: Status: Active Protocol: Document 05/06/20 13:00 SP (Rec: 05/06/20 13:48 SP [id number]) OP-PT Subjective Patient Comments Patient Comments Pt hasn't run much since last tx but has hiked on uneven trails with kids about 1.5- 2 miles and no problems. PT-OP-D Balance Start: 03/27/20 13:01 Freq: Status: Active Protocol: Document 03/27/20 13:05 AW (Rec: 03/27/20 15:13 AW [id number]) OP-PT Balance Assessment Standing Balance Static Standing Balance Ability Normal Dynamic Standing Balance Ability Good Standing Balance Comments Single leg stance 25 seconds left side and 20 seconds right side with increased shaking/ instability. Romero Fall Scale Copyright Permission PT-OP-F Manual Assessment Start: 03/27/20 13:01 Freq: Status: Active Protocol: Document 03/27/20 13:05 AW (Rec: 03/27/20 15:13 AW [id number]) Manual Assessments Soft Tissue Assessment Soft Tissue Mobility Assessment Tenderness of lateral ankle Joint Mobility Assessment Joint Mobility Assessment Decreased posterior talar glide. Distal tib fib posterior and anterior glides normal. PT-OP-G Mobility & Gait Start: 03/27/20 13:01 Freq: Status: Active Protocol: Document 03/27/20 13:05 AW (Rec: 03/27/20 15:13 AW [id number]) OP Mobility Evaluation Functional Movements Squats Pt able to perform bilateral squat with good depth and heels flat. OP Gait Assessment Gait Gait Assistance Required: Independent Distance (Feet) 200 Assistive Devices Assistive Device None Gait Deviations General Gait Pattern Antalgic,Decreased Stride Length,Step-to Gait Comments Gait Comments Gait notable for decreased R LE stance time and decreased L LE step length. PT-OP-J Posture/Palpation/Skin Start: 03/27/20 13:01 Freq: Status: Active Protocol: Document 03/27/20 13:05 AW (Rec: 03/27/20 15:13 AW [id number]) Posture Evaluation Position Standing Weight Distribution Balanced Ankle/Foot Posture (L) Calcaneal Eversion,(R) Calcaneal Eversion Foot Arch (L) Low Arch,(R) Low Arch Toe Posture (L) Flexed Toes,(R) Flexed Toes Comments Posture Comments Slight calcaneal valgus in weightbearing with left more pronounced than right. Skin Assessment Edema Assessment Bilateral Ankle Comments Figure 8 measurements: L 49 cm ; R 51 cm PT-OP-K Range of Motion Start: 03/27/20 13:01 Freq: Status: Active Protocol: Document 03/27/20 13:05 AW (Rec: 03/27/20 15:13 AW [id number]) Knee Goniometric Range of Motion Knee ROM Limitations Comments B knee ROM WNL Ankle and Foot Goniometric Range of Motion Ankle and Foot ROM Limitations ROM Limitations Swelling Comments Left ankle DF with knee flexed 18 degrees Left ankle DF with knee extended 10 degrees Right ankle DF with knee flexed 16 degrees Right ankle DF with knee extended 10 degrees Eversion and eversion WNL bilaterally Toe Range of Motion Toes ROM Limitations Comments WNL bilaterally all digits PT-OP-L Special Tests Start: 03/27/20 13:01 Freq: Status: Active Protocol: Document 03/27/20 13:05 AW (Rec: 03/27/20 15:13 AW [id number]) Special Tests Foot/Ankle Special Tests Anterior Draw Test Results (+) R Comments boggy end feel right side compared with left PT-OP-M Strength Start: 03/27/20 13:01 Freq: Status: Active Protocol: Document 03/27/20 13:05 AW (Rec: 03/27/20 15:13 AW [id number]) Hip Strength Hip Manual Muscle Testing Right Comments B hip strength grossly 4+/5 Knee Strength Knee Manual Muscle Testing Right Comments B knee strength grossly 5/5 Ankle/Foot Strength Ankle and Foot Manual Muscle Testing Right Dorsiflexion (L4) 4+ Good+ Plantarflexion (S1) 4- Good- Inversion 4+ Good+ Eversion (S1) 4+ Good+ Comments PF tested in standing. Pt able to complete 20 reps single leg heel raise on left side but only 6 reps on right side. Left ankle grossly 5/5 Toe Strength Toe Manual Muscle Testing Right Great Toe Comments B digits 1-5 4+/5 to 5/5 PT-OP-Q Treatments Start: 03/27/20 13:01 Freq: Status: Active Protocol: Document 05/06/20 13:00 SP (Rec: 05/06/20 13:48 SP [id number]) Therapeutic Exercises Standing Exercises glut med hip elevation wall Standing Exercise Name racquetball on wall rolling ( no pressure) Side bilateral Reps/Minutes 2x10 monster walk Standing Exercise Name monster walk (F/b/s) Side bilateral Resistance yellow Equipment Used TB Reps/Minutes 15 FT LAPS X2 EACH DIRECTION isometric glut med at wall Standing Exercise Name isometric glut med at wall Side bilateral Equipment Used purple ball Reps/Minutes 5 sec hold x 10 Comments cues for neutral pelvis bosu step up Standing Exercise Name bosu step up (opposite knee raise) Side right Equipment Used (corner) light contact rail Reps/Minutes 15 reps x 2 Comments forward and lateral single leg deadlift Standing Exercise Name cues for no lat lean on single leg Side right Equipment Used 5# DB Reps/Minutes 10 Comments Cues to hinge at hip,knee, back alignment walking lunges Standing Exercise Name stationary lunges Equipment Used chair, mirror Comments cued alignment: knees with toes and behind feet single heel raise Side bilateral Equipment Used 6 step Reps/Minutes x 10 each side alternate Comments cued med/lat stability, slow descent gastroc/soleus stretch Standing Exercise Name gastroc/soleus stretch Side bilateral Equipment Used step Reps/Minutes 2 minutes Other Exercises obstacle course uneven pads/hurdles Reps/Minutes 4 laps Comments cued med/ lat ankle mob and COG over AMADA PT-OP-R Modalities Start: 03/27/20 13:01 Freq: Status: Active Protocol: Document 04/03/20 16:07 AW (Rec: 04/03/20 16:25 AW [id number]) Hot Pack/Cold Pack Treatment cryo cuff Location right ankle Patient Position Hooklying Treatment Duration (minutes) 10 Patient Tolerance Good PT-OP-T Assessment and Plan Start: 03/27/20 13:01 Freq: Status: Active Protocol: Document 05/06/20 13:00 SP (Rec: 05/06/20 13:48 SP [id number]) Physical Therapy Assessment Goals Six Impairment swelling right ankle Short Term Goal (STG) Figure 8 measurement of right ankle will be reduced to 49 cm . STG Duration 04/24/20 Five Impairment lack of confidence on uneven terrain Half-Way Goal (LTG) Pt will walk 30 minutes on uneven terrain without increase in pain or swelling LTG Duration 05/22/20 Four Impairment pt scores 22/28 on FAAM sport subscale Half-Way Goal (LTG) Pt will score 26/28 or greater on FAAM sport subscale to demonstrate improved involvement in pt's preferred activities. Three Impairment decreased right ankle strength Half-Way Goal (LTG) Pt will demonstrate right ankle strength same as left, including single leg heel raises. LTG Duration 05/22/20 Two Impairment Pt has no appropriate HEP Short Term Goal (STG) Pt will be independent with HEP for support of therapy services provided in clinic STG Duration 04/24/20 Half-Way Goal (LTG) Pt will be independent with maintenance H&P for improved right ankle stability LTG Duration 05/22/20 One Impairment Pt unable to run for exercise. Short Term Goal (STG) Pt will run 1/2 mile without increase in pain or swelling STG Duration 04/24/20 Student Advisor Goal (LTG) Pt will run 2 miles without increase in pain or swelling LTG Duration 05/22/20 Assessment Summary Assessment Pt improved in glut facilitation during ther ex review. Cued for set up and used mirror for pr oper form with good carryover. Handouts provided for most of today's ( reviewed last tx ex). Uneven obstacle course end of tx with cuing for COG over AMADA and ankle stabiltiy with improvement. Feels good, very helpful. TM unavailable during tx. Physical Therapy Plan Frequency and Duration Frequency of Treatment 1-2x/week Duration of Treatment 12 weeks Plan of Care Start Date 03/27/20 Plan of Care End Date 06/19/20 Therapeutic Interventions Therapeutic Interventions Balance Training,Gait Training ,Home Exercise Program,Joint Mobilizations,Manual Therapy, Neuromuscular Re-education, Patient/Caregiver Education, Soft Tissue Mobilization, Taping,Therapeutic Activities, Therapeutic Exercises Modalities Cold Pack/Ice Massage Other Therapeutic Interventions cryo cuff Next Visit Focus/Plan Next Note Type Treatment Note Next Visit Plan Assess response to last tx: HEP glut facilitation review, uneven surfaces and stretching end for decreased sorness. Next tx: check running form; assess STG. Continue to work on uneven surfaces & review lunges & hip hinges
--- NOTE | 2020-05-08 15:59 | PT.OTN ---
Current Diagnoses Difficulty in walking, not elsewhere classified (05/08/20) Sprain of unspecified ligament of right ankle, initial encounter (05/08/20) Physical Therapy Treatment Note PT-OP-A Visit Information Start: 03/27/20 13:01 Freq: Status: Active Protocol: Document 05/08/20 13:34 AW (Rec: 05/08/20 14:17 AW [id number]) Out-Patient Physical Therapy Visit Information Visit Information Visit Type Treatment Note Visit Start Time 13:30 Visit Stop Time 14:12 Total Visit Minutes 42 Visit Number 07/13 Number of SHEET HEATER Visits 0 PT-OP-B Current Condition Start: 03/27/20 13:01 Freq: Status: Active Protocol: Document 03/27/20 13:05 AW (Rec: 03/27/20 13:12 AW [id number]) Current Condition History of Current Condition Onset Date 02/26/20 Current Complaints right ankle pain History of Current Condition On February 25, Pebbles was playing kickball with her children. She was on an uneven surface as her dogs had been digging holes in the yard. She heard three cracks but felt little pain. She started to notice swelling that night and had bruising over the anterior and lateral aspects of her ankle over the next few days. She iced one time and tried compression but could not get a good fit with a brace. Her doctor ordered an x-ray which demonstrated no fracture and normal alignment. Her pain was 4/10 at worst but she arrives today with no pain. She reports limping and guarding over the course of several days. Pt experienced a similar injury at age 13 which she states was at least as bad. She runs 3 miles approximately every other day which she reports is very beneficial for her mental health. She reports no recent change in her mileage or terrain. She did buy new running shoes 3 months ago due to nagging diffuse bilateral ankle pain, but she does not believe the change in footwear contributed to her injury. She typically wears sandals during the summer. Following the advice of her primary care provider, pt has not been running since her injury. 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 If indicated, MRI could be performed for further evaluation. Report finds No fractures or dislocations. Ankle mortise is normally aligned. No suspicious bony lesions. Soft tissues: No tibiotalar joint effusion. Achilles tendon appears normal. Treatment Goals Patient/Caregiver Goals Pt would like to return to running and to be more comfortable on uneven terrain. Prior Functional Status Baseline Function- ADL's Independent Baseline Function- Mobility Independent Baseline Function- Recreation/Hobbies Pt runs 3 miles every other day. Current Functional Impairments (Reported) Functional Limitations- Mobility/Gait Decreased confidence on uneven terrain Functional Limitations- Recreation/ Unable to participate in Hobbies running Personal Factors Other Personal Factors That May Effect Previous similar injury at age Therapy/Recovery 13 PT-OP-C Subjective Start: 03/27/20 13:01 Freq: Status: Active Protocol: Document 05/08/20 13:34 AW (Rec: 05/08/20 14:17 AW [id number]) OP-PT Subjective Patient Comments Patient Comments Pt went on a 2.5 mile run recently with no concern about her ankle. However, she is reporting plantar mid-foot pain after ~1/2 mile. Patient Reported Progress Improving PT-OP-D Balance Start: 03/27/20 13:01 Freq: Status: Active Protocol: Document 03/27/20 13:05 AW (Rec: 03/27/20 15:13 AW [id number]) OP-PT Balance Assessment Standing Balance Static Standing Balance Ability Normal Dynamic Standing Balance Ability Good Standing Balance Comments Single leg stance 25 seconds left side and 20 seconds right side with increased shaking/ instability. Romero Fall Scale Copyright Permission PT-OP-F Manual Assessment Start: 03/27/20 13:01 Freq: Status: Active Protocol: Document 03/27/20 13:05 AW (Rec: 03/27/20 15:13 AW [id number]) Manual Assessments Soft Tissue Assessment Soft Tissue Mobility Assessment Tenderness of lateral ankle Joint Mobility Assessment Joint Mobility Assessment Decreased posterior talar glide. Distal tib fib posterior and anterior glides normal. PT-OP-G Mobility & Gait Start: 03/27/20 13:01 Freq: Status: Active Protocol: Document 03/27/20 13:05 AW (Rec: 03/27/20 15:13 AW [id number]) OP Mobility Evaluation Functional Movements Squats Pt able to perform bilateral squat with good depth and heels flat. OP Gait Assessment Gait Gait Assistance Required: Independent Distance (Feet) 200 Assistive Devices Assistive Device None Gait Deviations General Gait Pattern Antalgic,Decreased Stride Length,Step-to Gait Comments Gait Comments Gait notable for decreased R LE stance time and decreased L LE step length. PT-OP-J Posture/Palpation/Skin Start: 03/27/20 13:01 Freq: Status: Active Protocol: Document 03/27/20 13:05 AW (Rec: 03/27/20 15:13 AW [id number]) Posture Evaluation Position Standing Weight Distribution Balanced Ankle/Foot Posture (L) Calcaneal Eversion,(R) Calcaneal Eversion Foot Arch (L) Low Arch,(R) Low Arch Toe Posture (L) Flexed Toes,(R) Flexed Toes Comments Posture Comments Slight calcaneal valgus in weightbearing with left more pronounced than right. Skin Assessment Edema Assessment Bilateral Ankle Comments Figure 8 measurements: L 49 cm ; R 51 cm PT-OP-K Range of Motion Start: 03/27/20 13:01 Freq: Status: Active Protocol: Document 03/27/20 13:05 AW (Rec: 03/27/20 15:13 AW [id number]) Knee Goniometric Range of Motion Knee ROM Limitations Comments B knee ROM WNL Ankle and Foot Goniometric Range of Motion Ankle and Foot ROM Limitations ROM Limitations Swelling Comments Left ankle DF with knee flexed 18 degrees Left ankle DF with knee extended 10 degrees Right ankle DF with knee flexed 16 degrees Right ankle DF with knee extended 10 degrees Eversion and eversion WNL bilaterally Toe Range of Motion Toes ROM Limitations Comments WNL bilaterally all digits PT-OP-L Special Tests Start: 03/27/20 13:01 Freq: Status: Active Protocol: Document 03/27/20 13:05 AW (Rec: 03/27/20 15:13 AW [id number]) Special Tests Foot/Ankle Special Tests Anterior Draw Test Results (+) R Comments boggy end feel right side compared with left PT-OP-M Strength Start: 03/27/20 13:01 Freq: Status: Active Protocol: Document 03/27/20 13:05 AW (Rec: 03/27/20 15:13 AW [id number]) Hip Strength Hip Manual Muscle Testing Right Comments B hip strength grossly 4+/5 Knee Strength Knee Manual Muscle Testing Right Comments B knee strength grossly 5/5 Ankle/Foot Strength Ankle and Foot Manual Muscle Testing Right Dorsiflexion (L4) 4+ Good+ Plantarflexion (S1) 4- Good- Inversion 4+ Good+ Eversion (S1) 4+ Good+ Comments PF tested in standing. Pt able to complete 20 reps single leg heel raise on left side but only 6 reps on right side. Left ankle grossly 5/5 Toe Strength Toe Manual Muscle Testing Right Great Toe Comments B digits 1-5 4+/5 to 5/5 PT-OP-Q Treatments Start: 03/27/20 13:01 Freq: Status: Active Protocol: Document 05/08/20 13:34 AW (Rec: 05/08/20 15:59 AW [id number]) Cardio Equipment Treadmill Duration (Minutes) 5 Speed 2.5-3.8 Other 2 min at 2.5; 3 min at 3.8 Gym Equipment Shuttle Rebound bilat heel raise Exercise Details 75# Reps/Duration 20 reps Comments progressed to single leg with 62.5# Therapeutic Exercises Standing Exercises single leg jump Standing Exercise Name single leg jump Side bilateral Reps/Minutes 8 reps x 2 each side Comments cued for neutral knee posture grapevine Standing Exercise Name grapevines Side bilateral Reps/Minutes 20 foot laps x 5 SLS with internal perturbations Side bilateral Equipment Used level 2 TB Reps/Minutes 4 min each side Comments w/ and w/o foam pad, moving arms overhead, circles, swinging bosu step up Standing Exercise Name bosu step up (opposite knee raise) Side right Equipment Used (corner) light contact rail Reps/Minutes 15 reps x 2 Comments forward and lateral single heel raise Side bilateral Equipment Used 6 step Reps/Minutes x 10 each side alternate Comments cued med/lat stability, slow descent PT-OP-R Modalities Start: 03/27/20 13:01 Freq: Status: Active Protocol: Document 04/03/20 16:07 AW (Rec: 04/03/20 16:25 AW [id number]) Hot Pack/Cold Pack Treatment cryo cuff Location right ankle Patient Position Hooklying Treatment Duration (minutes) 10 Patient Tolerance Good PT-OP-T Assessment and Plan Start: 03/27/20 13:01 Freq: Status: Active Protocol: Document 05/08/20 13:34 AW (Rec: 05/08/20 14:17 AW [id number]) Physical Therapy Assessment Goals Six Impairment swelling right ankle Short Term Goal (STG) Figure 8 measurement of right ankle will be reduced to 49 cm . 05/08/20 GOAL MET STG Duration 04/24/20 Five Impairment lack of confidence on uneven terrain Sleeve Fixer Goal (LTG) Pt will walk 30 minutes on uneven terrain without increase in pain or swelling LTG Duration 05/22/20 Four Impairment pt scores 22/28 on FAAM sport subscale Sleeve Fixer Goal (LTG) Pt will score 26/28 or greater on FAAM sport subscale to demonstrate improved involvement in pt's preferred activities. Three Impairment decreased right ankle strength Mcc Goal (LTG) Pt will demonstrate right ankle strength same as left, including single leg heel raises. LTG Duration 05/22/20 Two Impairment Pt has no appropriate HEP Short Term Goal (STG) Pt will be independent with HEP for support of therapy services provided in clinic STG Duration 04/24/20 Mcc Goal (LTG) Pt will be independent with maintenance H&P for improved right ankle stability LTG Duration 05/22/20 One Impairment Pt unable to run for exercise. Short Term Goal (STG) Pt will run 1/2 mile without increase in pain or swelling 05/08/20 GOAL MET STG Duration 04/24/20 Sleeve Fixer Goal (LTG) Pt will run 2 miles without increase in pain or swelling LTG Duration 05/22/20 Assessment Summary Assessment Pt improving in strength and stability. Introduced explosive movement this session with pt needing cueing for knee posture. Physical Therapy Plan Frequency and Duration Frequency of Treatment 1-2x/week Duration of Treatment 12 weeks Plan of Care Start Date 03/27/20 Plan of Care End Date 06/19/20 Therapeutic Interventions Therapeutic Interventions Balance Training,Gait Training ,Home Exercise Program,Joint Mobilizations,Manual Therapy, Neuromuscular Re-education, Patient/Caregiver Education, Soft Tissue Mobilization, Taping,Therapeutic Activities, Therapeutic Exercises Modalities Cold Pack/Ice Massage Other Therapeutic Interventions cryo cuff Next Visit Focus/Plan Next Note Type Treatment Note Next Visit Plan Assess response to last tx: HEP glut facilitation review, uneven surfaces and stretching end for decreased sorness. Next tx: check running form; assess STG. Continue to work on uneven surfaces & review lunges & hip hinges
--- NOTE | 2020-05-20 10:45 | PT-OP ANOTE ---
Pt called and left a message cancelling all remaining appts, to busy and can't fit in PT. MEDICAL OFFICE SECRETARY left message inquiring how doing and appts were cancelld per request, please call if having further concerns. MEDICAL OFFICE SECRETARY emailed PT to update DC.
--- NOTE | 2020-05-22 09:08 | PT.OPDS ---
Current Diagnoses Difficulty in walking, not elsewhere classified (05/08/20) Sprain of unspecified ligament of right ankle, initial encounter (05/08/20) Visit Care Team Role Provider Type Corrie Bynum MD Attending Provider Physician Family Provider Primary Care Provider Referring Provider Specialty: Family Practice Address: [address] [place] [address], [place], [address] Email: [email or web address] Visit Number Visit Number 07/13 Discharge Summary PT-OP-B Current Condition Start: 03/27/20 13:01 Freq: Status: Active Protocol: Document 03/27/20 13:05 AW (Rec: 03/27/20 13:12 AW [id number]) Current Condition History of Current Condition Onset Date 02/26/20 Current Complaints right ankle pain History of Current Condition On February 25, Pebbles was playing kickball with her children. She was on an uneven surface as her dogs had been digging holes in the yard. She heard three cracks but felt little pain. She started to notice swelling that night and had bruising over the anterior and lateral aspects of her ankle over the next few days. She iced one time and tried compression but could not get a good fit with a brace. Her doctor ordered an x-ray which demonstrated no fracture and normal alignment. Her pain was 4/10 at worst but she arrives today with no pain. She reports limping and guarding over the course of several days. Pt experienced a similar injury at age 13 which she states was at least as bad. She runs 3 miles approximately every other day which she reports is very beneficial for her mental health. She reports no recent change in her mileage or terrain. She did buy new running shoes 3 months ago due to nagging diffuse bilateral ankle pain, but she does not believe the change in footwear contributed to her injury. She typically wears sandals during the summer. Following the advice of her primary care provider, pt has not been running since her injury. 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 If indicated, MRI could be performed for further evaluation. Report finds No fractures or dislocations. Ankle mortise is normally aligned. No suspicious bony lesions. Soft tissues: No tibiotalar joint effusion. Achilles tendon appears normal. Treatment Goals Patient/Caregiver Goals Pt would like to return to running and to be more comfortable on uneven terrain. Prior Functional Status Baseline Function- ADL's Independent Baseline Function- Mobility Independent Baseline Function- Recreation/Hobbies Pt runs 3 miles every other day. Current Functional Impairments (Reported) Functional Limitations- Mobility/Gait Decreased confidence on uneven terrain Functional Limitations- Recreation/ Unable to participate in Hobbies running Personal Factors Other Personal Factors That May Effect Previous similar injury at age Therapy/Recovery 13 PT-OP-C Subjective Start: 03/27/20 13:01 Freq: Status: Active Protocol: Document 05/08/20 13:34 AW (Rec: 05/08/20 14:17 AW [id number]) OP-PT Subjective Patient Comments Patient Comments Pt went on a 2.5 mile run recently with no concern about her ankle. However, she is reporting plantar mid-foot pain after ~1/2 mile. Patient Reported Progress Improving PT-OP-D Balance Start: 03/27/20 13:01 Freq: Status: Active Protocol: Document 03/27/20 13:05 AW (Rec: 03/27/20 15:13 AW [id number]) OP-PT Balance Assessment Standing Balance Static Standing Balance Ability Normal Dynamic Standing Balance Ability Good Standing Balance Comments Single leg stance 25 seconds left side and 20 seconds right side with increased shaking/ instability. Romero Fall Scale Copyright Permission PT-OP-F Manual Assessment Start: 03/27/20 13:01 Freq: Status: Active Protocol: Document 03/27/20 13:05 AW (Rec: 03/27/20 15:13 AW [id number]) Manual Assessments Soft Tissue Assessment Soft Tissue Mobility Assessment Tenderness of lateral ankle Joint Mobility Assessment Joint Mobility Assessment Decreased posterior talar glide. Distal tib fib posterior and anterior glides normal. PT-OP-G Mobility & Gait Start: 03/27/20 13:01 Freq: Status: Active Protocol: Document 03/27/20 13:05 AW (Rec: 03/27/20 15:13 AW [id number]) OP Mobility Evaluation Functional Movements Squats Pt able to perform bilateral squat with good depth and heels flat. OP Gait Assessment Gait Gait Assistance Required: Independent Distance (Feet) 200 Assistive Devices Assistive Device None Gait Deviations General Gait Pattern Antalgic,Decreased Stride Length,Step-to Gait Comments Gait Comments Gait notable for decreased R LE stance time and decreased L LE step length. PT-OP-J Posture/Palpation/Skin Start: 03/27/20 13:01 Freq: Status: Active Protocol: Document 03/27/20 13:05 AW (Rec: 03/27/20 15:13 AW [id number]) Posture Evaluation Position Standing Weight Distribution Balanced Ankle/Foot Posture (L) Calcaneal Eversion,(R) Calcaneal Eversion Foot Arch (L) Low Arch,(R) Low Arch Toe Posture (L) Flexed Toes,(R) Flexed Toes Comments Posture Comments Slight calcaneal valgus in weightbearing with left more pronounced than right. Skin Assessment Edema Assessment Bilateral Ankle Comments Figure 8 measurements: L 49 cm ; R 51 cm PT-OP-K Range of Motion Start: 03/27/20 13:01 Freq: Status: Active Protocol: Document 03/27/20 13:05 AW (Rec: 03/27/20 15:13 AW [id number]) Knee Goniometric Range of Motion Knee ROM Limitations Comments B knee ROM WNL Ankle and Foot Goniometric Range of Motion Ankle and Foot ROM Limitations ROM Limitations Swelling Comments Left ankle DF with knee flexed 18 degrees Left ankle DF with knee extended 10 degrees Right ankle DF with knee flexed 16 degrees Right ankle DF with knee extended 10 degrees Eversion and eversion WNL bilaterally Toe Range of Motion Toes ROM Limitations Comments WNL bilaterally all digits PT-OP-L Special Tests Start: 03/27/20 13:01 Freq: Status: Active Protocol: Document 03/27/20 13:05 AW (Rec: 03/27/20 15:13 AW [id number]) Special Tests Foot/Ankle Special Tests Anterior Draw Test Results (+) R Comments boggy end feel right side compared with left PT-OP-M Strength Start: 03/27/20 13:01 Freq: Status: Active Protocol: Document 03/27/20 13:05 AW (Rec: 03/27/20 15:13 AW [id number]) Hip Strength Hip Manual Muscle Testing Right Comments B hip strength grossly 4+/5 Knee Strength Knee Manual Muscle Testing Right Comments B knee strength grossly 5/5 Ankle/Foot Strength Ankle and Foot Manual Muscle Testing Right Dorsiflexion (L4) 4+ Good+ Plantarflexion (S1) 4- Good- Inversion 4+ Good+ Eversion (S1) 4+ Good+ Comments PF tested in standing. Pt able to complete 20 reps single leg heel raise on left side but only 6 reps on right side. Left ankle grossly 5/5 Toe Strength Toe Manual Muscle Testing Right Great Toe Comments B digits 1-5 4+/5 to 5/5 PT-OP-T Assessment and Plan Start: 03/27/20 13:01 Freq: Status: Active Protocol: Document 05/20/20 09:05 AW (Rec: 05/22/20 09:08 AW [id number]) Physical Therapy Assessment Goals Six Impairment swelling right ankle Short Term Goal (STG) Figure 8 measurement of right ankle will be reduced to 49 cm . 05/08/20 GOAL MET STG Duration 04/24/20 Five Impairment lack of confidence on uneven terrain Mcfp Goal (LTG) Pt will walk 30 minutes on uneven terrain without increase in pain or swelling LTG Duration 05/22/20 Four Impairment pt scores 22/28 on FAAM sport subscale Mcfp Goal (LTG) Pt will score 26/28 or greater on FAAM sport subscale to demonstrate improved involvement in pt's preferred activities. Three Impairment decreased right ankle strength Ball Ender Goal (LTG) Pt will demonstrate right ankle strength same as left, including single leg heel raises. LTG Duration 05/22/20 Two Impairment Pt has no appropriate HEP Short Term Goal (STG) Pt will be independent with HEP for support of therapy services provided in clinic 05/21/20 MET STG Duration 04/24/20 Ball Ender Goal (LTG) Pt will be independent with maintenance H&P for improved right ankle stability 05/21/20 MET LTG Duration 05/22/20 One Impairment Pt unable to run for exercise. Short Term Goal (STG) Pt will run 1/2 mile without increase in pain or swelling 05/08/20 GOAL MET STG Duration 04/24/20 Mcfp Goal (LTG) Pt will run 2 miles without increase in pain or swelling 05/21/20 MET LTG Duration 05/22/20 Progress Towards Goals Progress Towards Goals Goals Met Physical Therapy Plan Frequency and Duration Frequency of Treatment 1-2x/week Duration of Treatment 12 weeks Plan of Care Start Date 03/27/20 Plan of Care End Date 06/19/20 Therapeutic Interventions Therapeutic Interventions Balance Training,Gait Training ,Home Exercise Program,Joint Mobilizations,Manual Therapy, Neuromuscular Re-education, Patient/Caregiver Education, Soft Tissue Mobilization, Taping,Therapeutic Activities, Therapeutic Exercises Modalities Cold Pack/Ice Massage Other Therapeutic Interventions cryo cuff Discharge Physical Therapy Discharge Reasons Patient Request Discharge Comments Pt happy with progress. She called to request discharge from therapy as she is too busy to continue and has met her goals.
== END 2020-05-23 11:50 ==
LOC: PHYS 13:30
PROVIDERS: Family Provider Family Medicine; PCP Family Medicine; Referring Provider Family Medicine; Visit Provider Family Medicine
DX: S93.401A Sprain of unspecified ligament of right ankle, initial encounter (principal); R26.2 Difficulty in walking, not elsewhere classified
CPT/HCPCS: 97010; 97110; 97112; 97140; 97161; 97535

== ENCOUNTER → 2020-10-10 13:23 | Outpatient (CLI) | payer OTHER, MEDICAID, SELFPAY ==
[2020-10-10 14:01] LABS: COVID19 -Nasal RAPID Negative (Negative)
== END ==
PROVIDERS: Family Provider Family Medicine; PCP Family Medicine; Visit Provider Specialist
DX: Z20.828 Contact with and (suspected) exposure to other viral communicable diseases (principal)
CPT/HCPCS: 87635

== ENCOUNTER 2020-10-11 08:48 | Day surgery (SDC) | payer OTHER, MEDICAID, SELFPAY ==
--- NOTE | 2020-10-11 | PATH_ITS ---
[facility] Accession Number: [id number] . 01 Material submitted: . peritoneum - PERITONEAL BIOPSY . 01 Clinical history: . LAP TUBAL LIGATION . 01 Diagnosis: Peritoneum, Biopsy: Mesothelial-lined fibroadipose tissue with involvement by endometriosis. [facility] 10/17/2020 1529 Local . 01 Electronically signed: . Kaykay Snell MD, Pathologist NPI- [id number] . 01 Gross description: . The specimen is received in formalin, labeled peritoneal biopsy and consists of two narvaez-pink fragments of soft tissue measuring 1.0 x 0.8 x 0.3 cm in aggregate. The specimen is entirely submitted in cassette A1. ([id number]) /MRV 10/15/2020 1029 Local . 01 Pathologist provided ICD-10: Z30.2 . 01 CPT . 344097 Performed at: [address] [facility] [address], [place], [place] [id number] MD Keegan Barahona MD Phone: [phone]
[2020-10-11] MEDS: LACTATED RINGERS 1,000 ML 100 ML IV (09:02)
[2020-10-11 09:05] VITALS: BP 107/72; PULSE 80; RESP 16; TEMP 36.3; O2SAT 98; BMI 29.8
--- NOTE | 2020-10-11 09:07 | SUR.OPER ---
Lithotomy on padded OR bed, head on pillow, arms secured on padded arm boards at <90 degrees abduction. Legs secured in padded yellow fins stirrups.
--- NOTE | 2020-10-11 09:29 | PM.PREOP ---
Pre-operative Note COVID-19 COVID-19 status: Negative Result date/Date tested (Pos, Neg/Pending): 10/10/20 Interval Note History & Physical reviewed/Exam performed by Physician: Yes Changes to H&P: No
[2020-10-11 10:32] VITALS: BP 104/69; PULSE 66; RESP 10; TEMP 36.4; O2SAT 100
[2020-10-11] MEDS: BUPIVACAINE 0.5% W/ EPI (PF) 30 ML VIAL INJ (10:34)
[2020-10-11 10:38] VITALS: BP 101/58; PULSE 62; RESP 14; TEMP 36.4; O2SAT 99
[2020-10-11 11:18] VITALS: BP 102/67; PULSE 63; RESP 16; TEMP 36.4; O2SAT 97
--- NOTE | 2020-10-11 11:21 | PM.OP.1 ---
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 Closure Type: primary Specimen(s): other ( Perineal biopsy) Estimated Blood Loss (mL): 5 Blood products transfused: none Procedure in detail: Patient was brought to the operating room where she underwent general anesthesia. [facility] was [facility] and prepped and draped in usual sterile fashion. Antibiotics were not indicated. Pulsatile stockings were in place and functional. Warming was with blankets. A speculum was placed in the vagina. The IUD strings were grasped and the IUD removed without difficulty. The area of the incisions were injected with half percent Marcaine with epinephrine. An incision was made in the umbilicus with a scalpel and the Verres needle placed in the abdomen. Confirmation of correct placement of the needle was performed by withdrawing on the syringe and then allowing fluid to fall freely through the needle. The abdomen was insufflated to 4 L of CO2. A 5 mm trocar was placed under direct visualization. 2 other 5 mm trochars were placed in the right and left lower quadrant under direct visualization after incising the skin. There did not appear to be any damage with placement of the trocars. The right fallopian tube was grasped and cauterized 3 widths of the PK generator in a row cutting in between with the PK generator. Same procedure was performed on the left fallopian tube. An area of the left perineum that appeared to have endometriosis was grasped and the perineum removed and sent to pathology. PK was used to stop bleeding. Adequate hemostasis was noted. The CO2 was allowed to escape from the abdomen. The trochars were removed. Skin was closed with 4-0 monocryl. The patient went to recovery room in good condition. Complications: none Post-operative Condition: stable Disposition: same day surgery Plan for aftercare: Home when awake and stable. Routine post laparoscopy care.
--- NOTE | 2020-10-11 11:28 | SUR.PHASEII ---
Pt has met discharge criteria: Denied pain or nausea, able to drink fluids without difficulty, abdominal dressings C/D/I. Discharge instructions discussed with pt, all questions answered. Transported via W/C to private vehicle.
--- NOTE | 2020-10-15 15:26 | P.HPOB_ITS ---
History of Present Illness History of Present Illness Reason for admission: other (Sterilization) Narrative: Solange Loja is a 35 year old female admitted on 10/11/2020 for sterilization by laparoscopic tubal ligation [facility] Medical History (Updated 10/15/20 @ 15:28 by Irene Acuna MD) delivery delivered Surgical History (Updated 10/17/19 @ 13:04 by Pat Reyes, RN) No pertinent past surgical history Family History (Updated 10/17/19 @ 13:07 by Pat Reyes RN) Mother Lymphoma COPD (chronic obstructive pulmonary disease) Depression Hyperlipidemia Father Diabetes mellitus Hypertension Hyperlipidemia H/O heart artery stent Fragile X chromosomal anomaly Social History household members: family and children Smoking Status: Never smoker alcohol intake: former Meds Home Medications and Allergies Home Medications Medication Instructions Recorded Confirmed Type naratriptan 2.5 mg tablet See Rx Instructions PO .COMPLEX 10/17/19 10/17/19 Rx #10 tab citalopram 20 mg PO DAILY 10/11/20 10/11/20 History hydroxyzine HCl 10 mg PO BEDTIME 10/11/20 10/11/20 History Allergies Allergy/AdvReac Type Severity Reaction Status Date / Time No Known Drug Allergies Allergy Unknown Verified 10/11/20 08:59 INGREDIENT: NKDA - NO KNOWN Allergy Unknown Uncoded 10/17/19 13:02 DRUG ALLERGIES Review of Systems Review of Systems ROS: Yes All systems reviewed with the patient and are negative except as otherwise documented Exam Vital Signs (past 8 hours): Oxygen Delivery Method Room Air Narrative Exam Narrative: Patient is a 35-year-old 9 para 3 currently using a Mirena IUD for control who would like to have a sterilization. Patient is aware of all control options and wishes sterilization. [facility] sterilization consent form was reviewed with the patient and signed on 08-21-20. Patient wishes to proceed with tubal ligation On physical exam the patient's HEENT exam within normal limits. Lungs are clear to auscultation percussion. Heart is regular rate and rhythm no S3-S4 or murmurs. Abdomen is soft, nontender with no palpable organomegaly. Pelvic exam was not performed. Extremities without edema and nontender. Assessment & Plan Assessment and plan (1) Sterilization: Status: Acute Assessment & Plan narrative: 35-year-old requesting sterilization by tubal ligation. Consent form was reviewed with the patient. Risk of damage to internal structures such as bowel, bladder, ureters that could require opening abdomen to repair or additional surgery. Minimal risk of infection or bleeding to require a blood transfusion. Patient is agreeable to blood transfusion if necessary to save her life. Patient is aware there is a small risk of ectopic after tubal ligation about 1 in 200. Signs and symptoms of ectopic were discussed with patient. Possible risk of scar tissue that could result in pain. Consent form signed and questions answered.
== END 2020-10-11 11:29 | disposition home or self-care (01) ==
PROVIDERS: Family Provider Family Medicine; PCP Family Medicine; Referring Provider Specialist; Visit Provider Specialist
PROC: (CPT 58671; principal; 2020-10-11 09:45)
DX: Z30.2 Encounter for sterilization (principal); Z30.432 Encounter for removal of intrauterine contraceptive device; N80.3 Endometriosis of pelvic peritoneum
CPT/HCPCS: 58670; 58301; 49321; 81025; J1100; J1885; J2405; J2704; J3010

== ENCOUNTER 2021-09-30 17:36 | Emergency (ER) | payer OTHER, MEDICAID, SELFPAY ==
[2021-09-30] VITALS (9 sets, daily range): BP systolic 120–148; BP diastolic 73–91; PULSE 64–93; RESP 12–19; TEMP 37.2; O2SAT 96–100; BMI 26.6
--- NOTE | 2021-09-30 17:44 | DI.RAD.S_ITS ---
PROCEDURE: XR CHEST 1V INDICATIONS: chest pain TECHNIQUE: One view of the chest was acquired. COMPARISON: None. FINDINGS: Surgical changes and devices: None. Lungs and pleura: Lungs are clear. No pleural effusions or pneumothorax. Mediastinum: Mediastinal contours appear normal. Heart size is normal. Bones and chest wall: No suspicious bony lesions. Overlying soft tissues appear unremarkable. IMPRESSION: No acute pulmonary process. Dictated by: Wendy Lal M.D. on 09/30/2021 at 18:00 Approved by: Wendy Lal M.D. on 09/30/2021 at 18:00
[2021-09-30 18:16] LABS: Add Manual Diff / Slide Review NO; Basophils Absolute Auto 100 /uL (0-100); Basophils Percent Auto 0.8 % (0-2); Eosinophils Absolute Auto 0 /uL (0-450); Eosinophils Percent Auto 0.4 % (2-4); Hematocrit 41.7 % (36-46); Hemoglobin 13.8 g/dL (12.0-16.0); Lymphocytes Absolute Auto 1900 /uL (1100-4500); Lymphocytes Percent Auto 27.8 % (25-40); Mean Corpuscular HGB Conc 33.2 % (30-36); Mean Corpuscular Hemoglobin 27.3 PG (26-34); Mean Corpuscular Volume 82.2 fL (80-100); Monocytes Absolute Auto 400 /uL (0-900); Neutrophils Absolute Auto 4500 /uL (1500-7000); Platelet Count 302 X10^3/uL (150-400); Red Blood Cell Count 5.07 X10^6/uL (4.0-5.2); Red Cell Distribution Width 13.5 % (11.6-14.8); White Blood Cell Count 6.9 X10^3/uL (4.5-11.0)
--- NOTE | 2021-09-30 18:29 | ED.CHESTPAIN ---
HPI - Chest Pain General Chief Complaint: Chest Pain Stated Complaint: feels like having a heart attack Time Seen by Provider: 09/30/21 18:11 Source: patient Mode of arrival: Ambulatory Limitations: no limitations History of Present Illness HPI narrative: Patient is a 36-year-old female here for evaluation of right-sided chest discomfort. Is been going on for the past 24 hours. There are. There are times when it is worse than others and specifically when she turns her head to the right discharged look behind her. No shortness of breath. Does not feel like the symptoms are worse with palpation. She also had some tingling in her left hand. Has not tried anything for the symptoms. Has never had symptoms like this in the past. Related Data Home Medications Medication Instructions Recorded Confirmed citalopram 20 mg tablet 20 mg PO DAILY 10/11/20 10/11/20 hydroxyzine HCl 10 mg tablet 10 mg PO BEDTIME 10/11/20 10/11/20 Previous Rx's Medication Instructions Recorded naratriptan 2.5 mg tablet See Rx Instructions PO .COMPLEX 10/17/19 #10 tab Allergies Allergy/AdvReac Type Severity Reaction Status Date / Time No Known Drug Allergies Allergy Unknown Verified 10/11/20 08:59 INGREDIENT: NKDA - NO KNOWN Allergy Unknown Uncoded 10/17/19 13:02 DRUG ALLERGIES Review of Systems Constitutional Constitutional: Reports system reviewed and no additional complaints, except as documented ENT Ears, Nose, Mouth, and Throat: Reports system reviewed and no additional complaints, except as documented Cardiovascular Cardiovascular: Reports as per HPI and Reports system reviewed and no additional complaints, except as documented Respiratory Respiratory: Reports system reviewed and no additional complaints, except as documented Gastrointestinal Gastrointestinal: Reports system reviewed and no additional complaints, except as documented Musculoskeletal Musculoskeletal: Reports system reviewed and no additional complaints, except as documented Integumentary/Breasts Skin/Breast: Reports system reviewed and no additional complaints, except as documented Hematologic/Lymphatic On Anticoagulants: No Patient History Medical History delivery delivered Surgical History (Updated 10/17/19 @ 13:04 by Pat Reyes RN) No pertinent past surgical history Family History (Updated 10/17/19 @ 13:07 by Pat Reyes RN) Mother Lymphoma COPD (chronic obstructive pulmonary disease) Depression Hyperlipidemia Father Diabetes mellitus Hypertension Hyperlipidemia H/O heart artery stent Fragile X chromosomal anomaly Social History household members: family and children Smoking Status: Never smoker alcohol intake: former Smoking Status: Never smoker alcohol intake frequency: a few times a month Substance Use Type: does not use Exam Initial Vital Signs Initial Vital Signs: Vital Signs Temperature 99.0 F 09/30/21 17:43 Pulse Rate 68 09/30/21 17:43 Respiratory Rate 18 09/30/21 17:43 Blood Pressure 137/87 09/30/21 17:43 Pulse Oximetry 98 09/30/21 17:43 HENMT Head: normal to inspection and normocephalic Chest Other: Slight tender to palpation right anterior chest specifically when she has her head turned to the right looking behind her. Resp Effort & Inspection: normal respiratory effort Auscultation: clear to auscultation bilaterally Cardio Rate: regular rate Rhythm: regular rhythm Skin General: no rashes or lesions noted Neuro General: patient alert, patient awake and moves all extremities Extrem General: normal to inspection Psych Appearance: grossly normal and well kempt Course Orders Ordered: ED Orders 09/30/21 17:44 XR chest 1V Stat EKG-12 Lead Stat 09/30/21 18:10 Complete Blood Count AUTO DIFF Stat Comprehensive Metabolic Panel Stat Lipase Stat Magnesium Stat Troponin & CK Cardiac Panel Stat Vital Signs Vital signs: Vital Signs - 8 hr 09/30/21 17:43 09/30/21 18:15 09/30/21 18:16 Temperature 99.0 F Pulse Rate 68 64 72 Respiratory Rate 18 12 15 Blood Pressure 137/87 135/91 H Pulse Oximetry 98 100 09/30/21 18:17 09/30/21 18:30 09/30/21 19:00 Temperature Pulse Rate 66 77 73 Respiratory Rate 15 19 18 Blood Pressure 134/86 148/75 H 124/74 Pulse Oximetry 98 98 99 09/30/21 19:30 09/30/21 19:31 09/30/21 19:53 Temperature Pulse Rate 93 H 87 71 Respiratory Rate Blood Pressure 133/86 120/73 Pulse Oximetry 97 96 97 MDM - Chest Pain Lab Data Attestation: I reviewed the patient's lab results. Result diagrams: 09/30/21 18:10 09/30/21 18:10 Labs: Lab Results 09/30/21 09/30/21 Range/Units 18:10 18:10 WBC 6.9 (4.5-11.0) X10^3/uL RBC 5.07 (4.0-5.2) X10^6/uL Hgb 13.8 (12.0-16.0) g/dL Hct 41.7 (36-46) % MCV 82.2 (80-100) fL MCH 27.3 (26-34) PG MCHC 33.2 (30-36) % RDW 13.5 (11.6-14.8) % Plt Count 302 (150-400) X10^3/uL Neut % (Auto) 65.0 (50-75) % Lymph % (Auto) 27.8 (25-40) % [place] % (Auto) 6.0 (3-14) % Eos % (Auto) 0.4 L (2-4) % Baso % (Auto) 0.8 (0-2) % Neut # (Auto) 4500 (0830-6870) /uL Lymph # (Auto) 1900 (2289-7274) /uL [place] # (Auto) 400 (0-900) /uL Eos # (Auto) 0 (0-450) /uL Baso # (Auto) 100 (0-100) /uL Sodium 139 (137-145) mmol/L Potassium 3.6 (3.4-5.1) mmol/L Chloride 106 (98-107) mmol/L Carbon Dioxide 24 (22-32) mmol/L BUN 11 (7-17) mg/dL Creatinine 0.65 (0.52-1.04) mg/dL Estimated GFR > 60.0 (>60) mL/min BUN/Creatinine Ratio 16.9 (6-22) Glucose 112 H (70-100) mg/dL Calcium 9.7 (8.4-10.2) mg/dL Magnesium 1.7 (1.6-2.3) mg/dL Total Bilirubin 0.7 (0.2-1.3) mg/dL AST 26 (14-36) IU/L ALT 19 (<35) IU/L Alkaline Phosphatase 69 (38-126) U/L Total Creatine Kinase 89 (30-135) U/L CK-MB (CK-2) TNP CK-MB (CK-2) Rel Index TNP Troponin I < 0.012 (0.01-0.034) ng/mL Total Protein 8.1 (6.3-8.2) g/dL Albumin 4.7 (3.5-5.0) g/dL Globulin 3.4 (1.7-4.1) g/dL Albumin/Globulin Ratio 1.4 (1.0-2.8) Lipase 58 (23-300) U/L Imaging Data Chest x-ray: Radiologist's Impression: [address] [address] XRay Report Signed Patient: Solange Loja MR#: [id number] : 1985 Acct:[id number] Age/Sex: 36 / F Date of Service: 09/30/21 Loc: ED Accession Number: [id number] ?? Procedure: XR chest 1V Ordering Provider: Kenyon Dunn MD PROCEDURE:? XR CHEST 1V ? INDICATIONS:? chest pain ? TECHNIQUE:? One view of the chest was acquired.? ? COMPARISON:? None. ? FINDINGS:? ? Surgical changes and devices:? None.? ? Lungs and pleura:? Lungs are clear.? No pleural effusions or pneumothorax.? ? Mediastinum:? Mediastinal contours appear normal.? Heart size is normal.? ? Bones and chest wall:? No suspicious bony lesions.? Overlying soft tissues appear unremarkable.? ? IMPRESSION:? No acute pulmonary process. ? ? Dictated by: Wendy Lal M.D. on 09/30/2021 at 18:00 ? ? Approved by: Wendy Lal M.D. on 09/30/2021 at 18:00?? ECG Data Interpretation: Sinus rhythm Ventricular rate 99 Normal axis Normal QRS Normal QTC No ST T wave changes MDM Narrative Medical decision making narrative: Low suspicion for ACS or PE. Chest x-ray is unremarkable. No indication for antibiotics. Patient has reproducible symptoms specifically when she turns her head to the right looks behind her. I do suspect musculoskeletal etiology. No further workup needed in the emergency department. Discussed this with the patient. She was given return precautions. She expressed understanding and agreement. Discharge Plan Departure Patient Disposition: Home Clinical Impression: Atypical chest pain Instructions: DI for Atypical Chest Pain Activity Restrictions/Additional Instructions: Your workup here in the emergency department is very reassuring. I recommend you contact her primary doctor for follow-up. Continue all of your medications as directed. Return to the emergency department for any new or worsening symptoms. Prescriptions: No Action citalopram 20 mg tablet 20 mg PO DAILY 0RF hydroxyzine HCl 10 mg tablet 10 mg PO BEDTIME 0RF naratriptan 2.5 mg tablet See Rx Instructions PO .COMPLEX Qty: 10 4RF Rx Instructions: take 1 tab at onset of headache; if no relief may repeat 1 tab in 4hr; max = 2 tabs/24 hrs PO Referrals: Corrie Bynum MD [Primary Care Provider] -
[2021-09-30 18:50] LABS: Alanine Aminotransferase 19 IU/L (<35); Albumin 4.7 g/dL (3.5-5.0); Albumin Globulin Ratio 1.4 (1.0-2.8); Alkaline Phosphatase 69 U/L (38-126); Aspartate Aminotransferase 26 IU/L (14-36); BUN Creatinine Ratio 16.9 (6-22); Bilirubin Total 0.7 mg/dL (0.2-1.3); Blood Urea Nitrogen 11 mg/dL (7-17); Calcium 9.7 mg/dL (8.4-10.2); Carbon Dioxide 24 mmol/L (22-32); Chloride 106 mmol/L (98-107); Creatine Kinase 89 U/L (30-135); Estimated Glomerular Filt Rate > 60.0 mL/min (>60); Globulin 3.4 g/dL (1.7-4.1); Glucose 112 mg/dL (70-100); HEMOLYSIS < 15 (0-50); Lipase 58 U/L (23-300); Magnesium 1.7 mg/dL (1.6-2.3); Potassium 3.6 mmol/L (3.4-5.1); Sodium 139 mmol/L (137-145); Total Protein 8.1 g/dL (6.3-8.2)
[2021-09-30 19:00] LABS: Troponin I < 0.012 ng/mL (0.01-0.034)
== END 2021-09-30 20:03 | disposition home or self-care (01) ==
PROVIDERS: Emergency Medicine; Emergency Provider Emergency Medicine; Family Provider Family Medicine; PCP Family Medicine
DX: R07.89 Other chest pain (principal)
CPT/HCPCS: 36415; 71045; 80053; 82550; 83690; 83735; 84484; 85025; 93005; 93010; 99283; 99284

== ENCOUNTER 2024-05-02 07:36 | Day surgery (SDC) | payer OTHER, MEDICAID, SELFPAY ==
--- NOTE | 2024-05-02 | PATH_ITS ---
[facility] Accession Number: [id number] No. of containers..01 Tissue . 01 Material submitted: . esophagus, E-G Junction - GE JUNCTION . 01 Diagnosis: GE JUNCTION: Gastroesophageal junction mucosa with changes consistent with reflux. No goblet cell metaplasia or dysplasia identified. . Specimen Comments: Few scattered intraepithelial eosinophils are present among the squamous epithelium. STO 05/10/2024 1209 Local . 01 Electronically signed: . Keegan Barahona MD, Pathologist NPI- [id number] . 01 Gross description: . GE JUNCTION: Received in formalin are 2 fragment(s) of narvaez, soft tissue measuring 0.2 x 0.2 x 0.2 cm to 0.4 x 0.3 x 0.2 cm submitted entirely in 1 cassette(s) /ALEXANDRA 05/10/20249 Local . 01 Pathologist provided ICD-10: K21.00 . 01 CPT . 953061 Specimen Comment: A courtesy copy of this report has been sent to [phone] Performed at: [address] [facility] [address], [place], [place] [id number] MD Keegan Barahona MD Phone: [phone]
[2024-05-02] MEDS: LACTATED RINGERS 1,000 ML 42 ML IV (07:55)
[2024-05-02] MEDS: FLEETS ENEMA 1 EACH PR (07:56)
[2024-05-02 07:57] VITALS: BP 120/80; PULSE 94; RESP 18; TEMP 36.3; O2SAT 98
--- NOTE | 2024-05-02 08:06 | P.CONS_ITS ---
History of Present Illness Consult details Date Patient Seen: 05/02/24 Time Patient Seen: 08:06 Chief complaint: EGD & Colonoscopy Narrative: 39-year-old woman here for diagnostic colonoscopy esophagogastroduodenoscopy. Episode of significant bright red blood per rectum which has now resolved. She has significant reflux symptoms no previous upper endoscopy. Meds Home Medications and Allergies Home Medications Medication Instructions Recorded Confirmed Type doxepin 25 mg capsule 25 - 50 mg PO ONCE PM PRN insomnia 05/02/24 05/02/24 History naratriptan 2.5 mg tablet 2.5 mg PO Q4H PRN migraine 05/02/24 05/02/24 History omeprazole 20 mg capsule,delayed 20 mg PO DAILY 05/02/24 05/02/24 History release venlafaxine 75 mg capsule,extended 225 mg PO DAILY 05/02/24 05/02/24 History release 24 hr Allergies Allergy/AdvReac Type Severity Reaction Status Date / Time No Known Drug Allergies Allergy Unknown Verified 05/02/24 08:01 INGREDIENT: NKDA - NO KNOWN Allergy Unknown Uncoded 05/02/24 08:01 DRUG ALLERGIES Exam Vital Signs (past 8 hours): - 05/02/24 07:57 Temperature 97.3 F L Pulse Rate 94 H Respiratory Rate 18 Blood Pressure 120/80 Pulse Oximetry 98 Oxygen Delivery Method Room Air Oxygen Delivery Method Room Air Narrative Exam Narrative: General adult woman alert oriented no acute distress Chest nonlabored respiration Extremities warm well perfused [facility] Medical History delivery delivered Surgical History No pertinent past surgical history Family History Mother Lymphoma COPD (chronic obstructive pulmonary disease) Depression Hyperlipidemia Father Diabetes mellitus Hypertension Hyperlipidemia H/O heart artery stent Fragile X chromosomal anomaly Social History household members: family and children Tobacco & Substance Use Smoking Status: Never smoker alcohol intake: former Assessment & Plan Assessment & Plan narrative: 39-year-old woman with rectal bleeding and GERD here for diagnostic esophagogastroduodenoscopy and colonoscopy. Technical details were discussed. Risks, benefits, alternatives explained. Risks including but not limited to myocardial infarction, aspiration, bleeding, pain, missed lesion, incomplete examination, need for further radiographic studies, intestinal injury, and need for major abdominal surgery were discussed. All questions were answered to their satisfaction, and they are in agreement with this plan. Time-Based Coding :: [TOTAL MINUTES] spent with patient and on the chart (including review of chart, obtaining history, exam, reviewing outside data, placing orders, documenting exam and treatment plan, and counseling patient) on [DATE].
[2024-05-02 08:47] VITALS: BP 125/85; PULSE 87; RESP 16; TEMP 36.3; O2SAT 98
[2024-05-02 08:49] VITALS: BP 113/82; PULSE 74; RESP 18; O2SAT 100
--- NOTE | 2024-05-02 08:52 | PM.OP.EC ---
Operative Date/Time/Diagnoses Date of procedure: 05/02/24 Time of procedure: 08:52 Pre-op diagnosis: Reflux, rectal bleeding Post-op diagnosis: other (Hiatal hernia, esophagitis, internal hemorrhoids) Procedure & Clinicians Study performed: Esophagogastroduodenoscopy and colonoscopy Same procedure as scheduled: Yes Indications: Rectal bleeding, GERD Surgeon: Jeremie Armendariz Procedure Notes Procedure in detail: The history and physical was performed/updated and the patient is ASA class is 2. The procedure was discussed in detail with the patient. Potential risks complications including infection, bleeding, missed diagnosis, perforation, need for surgery, and were explained. Their questions were answered and informed consent was obtained. Patient placed in left lateral decubitus position. Time out was performed. Procedural sedation was administered by Anesthesia. A bite block was placed. the scope was inserted into the mouth and advanced through the esophagus and into the stomach. the pylorus was intubated and the duodenum was examined to the 2nd portion.. The scope was retroflexed within the stomach. The stomach was then decompressed and scope pulled back to the GE junction. The scope was then removed Examination began with a thorough inspection of the perianal area there was no evidence of fissures, fistulae, external hemorrhoids or cutaneous malignancy. The colonoscopy scope was then placed into the anal canal and was advanced to the cecum, which was identified by the ileocecal valve, the appendiceal orifice and the confluence of the taenia. The scope was then slowly withdrawn examining colon thoroughly in all directions, irrigating it of any residual stool. FINDINGS -hiatal hernia small Distal esophagitis biopsy of GE junction taken with forceps Internal hemorrhoids The patient tolerated the procedure well. They will be discharged once criteria are met. The prep was of good/excellent quality. The withdrawl time was 6 minutes. Specimen(s): other (GE junction) Impression: Esophagitis Internal hemorrhoids Hiatal hernia Post-procedure Recommendations: Reflux diet Plan for aftercare: Increase omeprazole to 20 mg twice daily Disposition: same day surgery
[2024-05-02 08:54] VITALS: BP 119/81; PULSE 70; RESP 14; O2SAT 100
[2024-05-02 09:00] VITALS: BP 121/83; PULSE 73; RESP 15; TEMP 36.2; O2SAT 100
== END 2024-05-02 09:19 | disposition home or self-care (01) ==
PROVIDERS: Family Provider Family Medicine; PCP Family Medicine; Referring Provider Surgery; Visit Provider Surgery
PROC: 0DJ08ZZ Inspection of Upper Intestinal Tract, Via Natural or Artificial Opening Endoscopic (ICD-10-PCS; CPT 43235; principal; 2024-05-02 08:15)
PROC: 0DJD8ZZ Inspection of Lower Intestinal Tract, Via Natural or Artificial Opening Endoscopic (ICD-10-PCS; CPT 45378; 2024-05-02 08:15)
DX: K62.5 Hemorrhage of anus and rectum (principal); K21.9 Gastro-esophageal reflux disease without esophagitis; K20.90 Esophagitis, unspecified without bleeding; K44.9 Diaphragmatic hernia without obstruction or gangrene; K64.8 Other hemorrhoids
CPT/HCPCS: 45378; 43239; J2704

== ENCOUNTER → 2024-06-22 13:59 | Outpatient (CLI) | payer OTHER, MEDICAID, SELFPAY ==
--- NOTE | 2024-06-22 14:01 | DI.MG.S_ITS ---
BILATERAL DIGITAL SCREENING MAMMOGRAM 3D/2D WITH CAD: 06/22/2024 CLINICAL: Baseline exam. Routine screening. No prior exams were available for comparison. There are scattered areas of fibroglandular density (category b / 25%-50% glandular tissue). Current study was also evaluated with a Computer Aided Detection (CAD) system. No significant masses, calcifications, or other findings are seen in either breast. IMPRESSION: NEGATIVE There is no mammographic evidence of malignancy. A 1 year screening mammogram is recommended. Based on the Tyrer Cuzick model (a risk assessment model) the patient's lifetime risk is 9.5% and her 10 year risk is 1.2%. According to the ACR, ACS, and NCCN guidelines, an annual breast MRI exam along with mammogram is recommended if the patient's lifetime risk is 20% or greater. This exam was interpreted at Station ID: [id number]. NOTE: For mammograms, a report in lay terms will be sent to the patient. Approximately 15% of breast malignancies will not be visualized mammographically. In the management of a palpable breast mass, a negative mammogram must not discourage biopsy of a clinically suspicious lesion. Electronically Signed By: Candy elise/kasey:06/23/2024 12:37:13 letter sent: Normal Exam ACR BI-RADS Category 1: Negative
== END ==
LOC: MAMMO 14:00
PROVIDERS: Family Provider Family Medicine; PCP Family Medicine; Referring Provider Family Medicine; Visit Provider Family Medicine
DX: Z12.31 Encounter for screening mammogram for malignant neoplasm of breast (principal)
CPT/HCPCS: 77063; 77067

== ENCOUNTER 2024-07-05 08:12 | Emergency (ER) | payer OTHER, MEDICAID, SELFPAY ==
--- NOTE | 2024-07-05 08:16 | ED_ITS ---
HPI - Dental/Oral General Chief complaint: Dental/Oral Stated complaint: tooth infection Time Seen by Provider: 07/05/24 08:16 History of Present Illness HPI Narrative: Patient is a 39-year-old female with a past medical history of migraine and GERD comes into the ED for evaluation of dental pain. States that she does have a known infection to her right lower jaw from dental abiola, states that she saw her dentist states that he will started her on amoxicillin has been on it for 3 days but has noticed slightly worsening swelling. She denies any difficulty moving her neck denies any difficulty swallowing breathing with voice changes no trismus tolerating secretions. She states that she is supposed to have this tooth extracted in about 1 month. She denies any systemic symptoms no visual changes. Related Data Home Medications Medication Instructions Recorded Confirmed doxepin 25 mg capsule 25 - 50 mg PO ONCE PM PRN insomnia 05/02/24 05/02/24 naratriptan 2.5 mg tablet 2.5 mg PO Q4H PRN migraine 05/02/24 05/02/24 venlafaxine 75 mg capsule,extended 225 mg PO DAILY 05/02/24 05/02/24 release 24 hr Previous Rx's Medication Instructions Recorded omeprazole 20 mg capsule,delayed 20 mg PO BID #60 caps 05/02/24 release clindamycin HCl 300 mg capsule 450 mg (1.5 x 300 mg) PO TID 7 07/05/24 days #32 caps Allergies Allergy/AdvReac Type Severity Reaction Status Date / Time No Known Drug Allergies Allergy Unknown Verified 05/02/24 08:01 Review of Systems Review of Systems Narrative: General: Denies fever, chills, weight loss HEENT: Positive dental pain, Denies headache, eye drainage, eye irritation, head trauma, sore throat, voice change Cardiovascular: Denies any chest pain, palpitations, shortness of breath, tachycardia Respiratory: Denies any shortness of breath, cough, wheeze, stridor GI/: Denies any abdominal pain, nausea, vomiting, diarrhea, bright red blood per rectum, melanotic stools, urinary frequency, urinary retention, dysuria, hematuria MSK: Denies any joint pain, muscle pains, swelling Skin: Denies any rashes, lesions, discoloration Neuro: Denies any headache, lightheadedness, dizziness, fainting, weakness Psych: Denies SI/HI Patient History Medical History delivery delivered Surgical History No pertinent past surgical history Family History Mother Lymphoma COPD (chronic obstructive pulmonary disease) Depression Hyperlipidemia Father Diabetes mellitus Hypertension Hyperlipidemia H/O heart artery stent Fragile X chromosomal anomaly Social History household members: family and children Smoking Status: Never smoker alcohol intake: former Smoking Status: Never smoker alcohol intake frequency: a few times a month Substance Use Type: does not use Exam Narrative Exam Narrative: General: Cooperative, comfortable, well-developed, not in acute distress HEENT: Dental abiola noted to the right lower molar/premolar region. No apical abscess noted, patient is speaking in full sentences protecting airway no voice changes no stridor no trismus tolerating secretions Normocephalic, atraumatic, PERRLA, normal sclera, eyelids normal, Neck: Active full range of motion, atraumatic Chest: Normal to inspection, negative crepitus, no overlying erythema ecchymosis Respiratory: Normal respiratory effort, not in acute respiratory distress, clear to auscultation bilaterally negative cough, wheeze, tachypnea, rhonchi, rales Cardiology: Regular rate rhythm negative gallop, murmur, rubs GI/: Normal to inspection, soft, nonrigid, no tenderness to palpation, e xam deferred MSK: Full range of active range of motion of all 4 extremities, atraumatic Skin: No rashes lesions noted Neuro: Alert awake oriented x3, moves all 4 extremities spontaneously, cranial nerves intact, able to answer all questions appropriately follows commands appropriately Psych: Cooperative, negative suicidal or homicidal ideations Initial Vital Signs Initial Vital Signs: Vital Signs Temperature 98.3 F 07/05/24 08:20 Pulse Rate 80 07/05/24 08:20 Respiratory Rate 18 07/05/24 08:20 Blood Pressure 148/70 H 07/05/24 08:20 Pulse Oximetry 100 07/05/24 08:20 Oxygen Delivery Method Room Air 07/05/24 08:20 Course Vital Signs Vital signs: Vital Signs - 8 hr 07/05/24 08:20 Temperature 98.3 F Pulse Rate 80 Respiratory Rate 18 Blood Pressure 148/70 H Pulse Oximetry 100 Oxygen Delivery Method Room Air MDM - Dental/Oral Differential Diagnosis Differential diagnosis: Likely dental caries, toothache and dental abscess MDM Narrative Medical decision making narrative: Patient is a 39-year-old female who presents for persistent dental pain, is supposed to have a tooth extracted in our month, saw her dentist was started on amoxicillin has been on this for 3 days but noted persistent/worsening swelling, there is very low indication of Shane angina at this time given patient tolerating secretions no trismus no voice changes no stridor no torticollis. She is well-appearing she has not complaining of any other symptoms at this time. I will change her from amoxicillin to clindamycin. And have her follow up with her primary care doctor and her dentist in an outpatient setting. Strict return precautions were given patient will be sent home with strict return precautions. Discharge Plan Departure Patient Disposition: Home Clinical Impression: Pain, dental Activity Restrictions/Additional Instructions: Please follow-up with your dentist and your primary care doctor Please read the discharge instructions sheet carefully and bring all papers to all doctor follow-up visits, as it may contain information that your doctor may want to see. Disease processes change and evolve, if your symptoms worsen or if you develop any new symptoms that are concerning to you please return for evaluation. Your evaluation today does not show any evidence of any life-threatening/serious illnesses requiring admission to the hospital or surgery. Please follow-up with your doctor for re-evaluation in approximately 1 day. Seek immediate medical attention for any worrisome symptoms. Prescriptions: New clindamycin HCl 300 mg capsule 450 mg PO TID 7 Days Qty: 32 0RF No Action venlafaxine 75 mg capsule,extended release 24hr 225 mg PO DAILY doxepin 25 mg capsule 25 - 50 mg PO ONCE PM PRN (Reason: insomnia) naratriptan 2.5 mg tablet 2.5 mg PO Q4H PRN (Reason: migraine) omeprazole 20 mg capsule,delayed release(DR/EC) 20 mg PO BID Qty: 60 0RF Referrals: Corrie Bynum MD [Primary Care Provider] - Stand Alone Forms: Patient Portal/API
[2024-07-05 08:20] VITALS: BP 148/70; PULSE 80; RESP 18; TEMP 36.8; O2SAT 100; BMI 35.9
== END 2024-07-05 08:34 | disposition home or self-care (01) ==
PROVIDERS: Emergency Provider Student in an Organized Health Care Education/Training Program; Family Provider Family Medicine; PCP Family Medicine
DX: K08.89 Other specified disorders of teeth and supporting structures (principal)
CPT/HCPCS: 99281

== ENCOUNTER 2024-07-18 17:23 | Emergency (ER) | payer OTHER, MEDICAID, SELFPAY ==
[2024-07-18 17:27] VITALS: BP 115/66; PULSE 73; RESP 18; TEMP 36.2; O2SAT 97; BMI 30.9
== END 2024-07-18 20:22 | disposition left against medical advice (07) ==
PROVIDERS: Emergency Provider Emergency Medicine; Family Provider Family Medicine; PCP Family Medicine
CPT/HCPCS: 99281

== ENCOUNTER → 2024-11-01 16:32 | Outpatient (CLI) | payer OTHER, SELFPAY ==
--- NOTE | 2024-11-01 16:33 | DI.US.S_ITS ---
PROCEDURE: US PELVIC COMPLETE INDICATIONS: ENDOMETRIOSIS/PELVIC PAIN TECHNIQUE: Real-time scanning was performed of the pelvic organs, with image documentation. Additional endovaginal scanning was necessary due to incomplete visualization of the adnexal and endometrial structures by transabdominal scanning. COMPARISON: None. FINDINGS: Uterus: Uterus is anteverted and normal in size at 8.9 x 5.0 x 6.0 cm. The myometrium is heterogeneous. The endometrium measures 7.9 mm combined thickness. Mid intramural fibroid measuring 4.2 x 4.1 x 4.3 centimeters. Ovaries: The right ovary measures 1.6 x 1.0 x 1.8 cm, with a calculated ovarian volume of 1.5 cc. The left ovary measures 1.8 x 1.7 x 1.7 cm, with a calculated ovarian volume of 2.7 cc. Complex probable hemorrhagic cyst within the left ovary measuring 0.7 x 1.4 x 0.7 centimeters. The ovaries otherwise have a normal sonographic appearance. Less than 12 follicles can be seen in each ovary. No adnexal masses are seen. Other: No pathologic free abdominal or pelvic fluid. IMPRESSION: Intramural fibroid measuring 4.3 centimeters. Complex probable hemorrhagic cyst within the left ovary measuring 1.4 centimeters. No adnexal masses. We strive to produce accurate, complete, and clear reports of imaging services. To assist us in improving patient care, this report was composed using standard report templates and voice recognition software. Therefore, it may contain abnormal punctuation, insertions and/or omissions. Occasional wrong-word or sound-alike substitutions may occur. Though we review the report and make efforts to correct it, we do recommend that the report be read carefully in proper context to recognize any text inaccuracies. Dictated by: Tom Driver M.D. on 11/02/2024 at 10:34 Approved by: Tom Driver M.D. on 11/02/2024 at 10:36
== END ==
PROVIDERS: Family Provider Family Medicine; PCP Family Medicine; Referring Provider Family Medicine; Visit Provider Family Medicine
DX: N80.9 Endometriosis, unspecified (principal); R10.2 Pelvic and perineal pain; D25.1 Intramural leiomyoma of uterus; N83.292 Other ovarian cyst, left side
CPT/HCPCS: 76830; 76856